=== PATIENT | male | born 1970 | race Caucasian/White ===

== ENCOUNTER → 2017-01-15 | Day surgery (SDC) | payer BC, OTHER ==
[~2017-01-15] VITALS: Ht 167.6 cm; Wt 102.1 kg
[~2017-01-15] MED LIST: AMLO5TAB2 PO; ATOR40TA PO; CEPH500T PO; D5W/0.2% SODIUM CHLORIDE 250 ML IV SCH; DOXY100C PO; LIDOCAINE 2% W/EPIN INJ 20ML **PRES FREE As Ordered ONE; LIDOCAINE 2% W/EPIN INJ 20ML **PRES FREE XX ONE; LIDOCAINE 4% INJ 5 ML AMP As Ordered ONE; LIDOCAINE 4% INJ 5 ML AMP OU ONE; LISI10TA4 PO; MAXITROL OPHTH OINT 3.5 GM As Ordered ONE; MAXITROL OPHTH OINT 3.5 GM OS ONE; MIDAZOLAM INJ 2 MG/2 ML VIAL (J2250) As Ordered ONE; NYST10PW TOP; PERCOCET PO; POVIDONE-IODINE 5% OPHTH PREP SOL 30ML As Ordered ONE; TETRACAINE 0.5% OPHTH SOLN 4ML As Ordered ONE; fentaNYL 100 MCG/2 ML INJECTION (J3010) As Ordered ONE
[2017-01-15 16:45] VITALS: BP 162/88
--- NOTE | 2017-01-16 12:19 | RO ---
DATE OF PROCEDURE: 01/15/2017 PREPROCEDURE DIAGNOSIS: Conjunctival tumor lateral conjunctiva left eye. 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 PROCEDURE: Excisional biopsy of the tumor of the conjunctiva and orbit. SURGEON: Liang Oconnor Jr., DO FACS IRRIGATION EQUIPMENT INSTALLER: ANESTHESIA: Local 2% lidocaine with epinephrine and monitoring and sedation by anesthesia. ESTIMATED BLOOD LOSS: Minimal. COMPLICATIONS: None. INDICATION: Patient discomfort and appearance was unsatisfactory. PROCEDURE IN DETAIL: This gentleman presented to the office complaining of a growth in his left conjunctiva. He was presented to and was re-examined in the preoperative area, however, the consent that he signed was for a lid lesion. He was taken to the operating room and prepped and draped, but during the time out, it was found that the tumor was in the conjunctiva, so the drapes were removed, the lid speculum was removed and the patient was assessed and to be competent to sign a new consent. So informed consent was obtained for conjunctival lesion, tumor and this was signed by the surgeon and the patient and witnessed by the nursing staff. Patient was reprepped and draped and a lid speculum was introduced into the left eye. The conjunctiva was infused with 2% lidocaine and epinephrine, about 0.5 mL and conjunctiva peritomy was performed several clock hours from about the 2 to 5 o'clock and exploration began. There was a cyst prolapsed over the fat which extended into the orbit. The orbital fat was excised with a cutting Bovie cautery and the conjunctiva was closed and well approximated with interrupted #6-0 plain sutures, then was administered Maxitrol ointment. Lid speculum removed. Patient returned to recovery area in excellent position. Postoperative instructions will be Maxitrol ointment four times a day and he will followup in the office.
== END | disposition home or self-care (01) ==
LOC: M SDC 12:22
PROVIDERS: ATTEND Ophthalmology
DX: H11.442 Conjunctival cysts, left eye (principal); I10 Essential (primary) hypertension; E78.5 Hyperlipidemia, unspecified; M10.9 Gout, unspecified; L40.8 Other psoriasis; Z79.899 Other long term (current) drug therapy
CPT/HCPCS: 68100; 88305; J2250; J3010

== ENCOUNTER → 2017-05-15 | Outpatient (REF) | payer OTHER ==
[~2017-05-15] MED LIST changes: -D5W/0.2% SODIUM CHLORIDE 250 ML IV SCH; -LIDOCAINE 2% W/EPIN INJ 20ML **PRES FREE As Ordered ONE; -LIDOCAINE 2% W/EPIN INJ 20ML **PRES FREE XX ONE; -LIDOCAINE 4% INJ 5 ML AMP As Ordered ONE; -LIDOCAINE 4% INJ 5 ML AMP OU ONE; -MAXITROL OPHTH OINT 3.5 GM As Ordered ONE; -MAXITROL OPHTH OINT 3.5 GM OS ONE; -MIDAZOLAM INJ 2 MG/2 ML VIAL (J2250) As Ordered ONE; -POVIDONE-IODINE 5% OPHTH PREP SOL 30ML As Ordered ONE; -TETRACAINE 0.5% OPHTH SOLN 4ML As Ordered ONE; -fentaNYL 100 MCG/2 ML INJECTION (J3010) As Ordered ONE
[2017-05-15 15:12] LABS: ALBUMIN 2.9 GM/DL (3.2-5.2); ALKALINE PHOSPHATASE 306 U/L (45-117); ALT/SGPT 91 U/L (12-78); ANION GAP 10 MEQ/L (8-16); BILIRUBIN,TOTAL 1.5 MG/DL (0.2-1.0); CALCIUM LEVEL 7.6 MG/DL (8.5-10.1); CARBON DIOXIDE LEVEL 28 MEQ/L (21-32); CHLORIDE LEVEL 93 MEQ/L (98-107); CREATININE FOR GFR 0.83 MG/DL (0.70-1.30); GLOMERULAR FILTRATION RATE > 60.0 (>60); GLUCOSE, FASTING 184 MG/DL (70-105); POTASSIUM SERUM 3.9 MEQ/L (3.5-5.1); SODIUM LEVEL 131 MEQ/L (136-145)
[2017-05-15 16:12] LABS: AST/SGOT 170 U/L (15-37); BLOOD UREA NITROGEN 6 MG/DL (7-18); TRIGLYCERIDES LEVEL 2742 MG/DL (<150)
[2017-05-15 16:13] LABS: ALBUMIN/GLOBULIN RATIO 0.74 (1.00-1.93); CHOLESTEROL LEVEL 468 MG/DL (<200); TOTAL PROTEIN 6.8 GM/DL (6.4-8.2)
[2017-05-15 16:36] LABS: MEAN CORPUSCULAR HGB CONC 32.3 g/dl (32.0-36.5); PLATELET COUNT, AUTOMATED 145 k/mm3 (150-450); RED CELL DISTRIBUTION WIDTH 13.9 % (11.5-14.5); WHITE BLOOD COUNT 5.9 K/mm3 (4.0-10.0)
[2017-05-15 16:39] LABS: BASO % 0.6 % (0.0-1.0); EOS # 0.1 K/mm3 (0.0-0.50); EOS % 1.4 % (0.0-3.0); LARGE UNSTAINED CELL # 0.1 K/mm3 (0.0-0.4); LARGE UNSTAINED CELL % 1.8 % (0.0-4.0); LYMPH # 1.3 K/mm3 (1.5-4.5); LYMPH % 21.5 % (24.0-44.0); MONO # 0.4 K/mm3 (0.0-0.8); NEUTROPHILS # 4.1 K/mm3 (1.8-7.7); NEUTROPHILS % 68.7 % (36.0-66.0)
[2017-05-15 16:40] LABS: ADD MORPHOLOGY? NO; DIFF SLIDE NUMBER 250
== END ==
LOC: M LAB REF 12:43
PROVIDERS: ATTEND Nurse Practitioner Adult Health
DX: E78.2 Mixed hyperlipidemia (principal); R73.09 Other abnormal glucose; I10 Essential (primary) hypertension

== ENCOUNTER → 2018-04-24 | Outpatient (REF) | payer OTHER ==
[2018-04-26 08:06] LABS: LDL DIRECT 35 mg/dL (0-99)
== END ==
LOC: M LAB REF 08:00
DX: I10 Essential (primary) hypertension (principal)

== ENCOUNTER → 2018-09-04 | Outpatient (REF) | payer OTHER ==
[2018-09-06 09:44] LABS: LDL DIRECT 193 mg/dL (0-99)
== END ==
LOC: M LAB REF 17:18
DX: E78.2 Mixed hyperlipidemia (principal)
CPT/HCPCS: 83721

== ENCOUNTER → 2018-09-27 | Outpatient (CLI) | payer BC, OTHER | LOC: M RAD 13:38 | DX: J98.6 Disorders of diaphragm (principal) | CPT/HCPCS: 76000 ==

== ENCOUNTER 2018-11-11 10:49 | Emergency (ER) | payer OTHER, BC | END 2018-11-11 12:31 | disposition home or self-care (01) | LOC: M ED 10:49 | DX: S80.01XA Contusion of right knee, initial encounter (principal); W22.8XXA Striking against or struck by other objects, initial encounter; Y92.89 Other specified places as the place of occurrence of the external cause; Y99.0 Civilian activity done for income or pay; I10 Essential (primary) hypertension; Z79.899 Other long term (current) drug therapy | CPT/HCPCS: 73564 ==

== ENCOUNTER → 2018-12-19 | Outpatient (CLI) | payer BC, OTHER ==
[~2018-12-19] MED LIST changes: -AMLO5TAB2 PO; +AMLO5TAB6 PO; -ATOR40TA PO; +ATOR40TA75 PO
--- NOTE | 2018-12-24 13:06 | SLEEPCENT ---
DATE OF STUDY: 12/19/2018 ORDERING PROVIDER: Leighton Arnett DO Nocturnal polysomnography was performed for re-titration of pressure therapy in this patient with obstructive sleep apnea syndrome. Apnea-hypopnea index 23.7. For testing, the patient was fit with a ResMed Quattro full face mask of medium size. 5 cm of water pressure was initially applied to the circuit, and the lights were extinguished. 6 hours and 28 minutes of data were reviewed. There were 321 minutes of sleep identified. Sleep latency was short at 5 minutes. Rapid eye movement (REM) latency was short at 14 minutes. Sleep architecture improved late in the study on optimal pressure therapy. Overall sleep efficiency was 83.6%. The patient's electrocardiogram showed a sinus rhythm with an average heart rate of 68 beats per minute. Electroencephalogram (EEG) showed normal waveforms for awake and sleep stages. Respiratory events were best palliated with continuous positive airway pressure (CPAP) at a pressure of +13. Limb activity was sporadic. There was one train of 30 events, and limb movement arousal index was 9.3. IMPRESSION: Obstructive sleep apnea syndrome (G47.33). RECOMMENDATION: Nightly use of pressure therapy at 13 cm of water.
== END ==
LOC: M SLEEP 20:47
PROVIDERS: ATTEND Internal Medicine Pulmonary Disease
DX: G47.33 Obstructive sleep apnea (adult) (pediatric) (principal)

== ENCOUNTER → 2020-05-27 | Outpatient (REF) | payer OTHER ==
[~2020-05-27] MED LIST changes: +AMLO1TAB24 PO; -AMLO5TAB6 PO; +ATOR1TAB21 PO; +B-10TAB2 PO; +IBUP200T45 PO; +INDA125TA PO; +LISI-542 PO; +MULTCAP PO; +NYST-15 TOP; -NYST10PW TOP; +PANT40TA29 PO; +SUCR1ORA PO; +THIA100T7 PO; +VASC1CAP2 PO
[2020-05-29 07:07] LABS: LDL DIRECT 27 mg/dL (0-99)
== END ==
LOC: M LAB REF 16:50
PROVIDERS: ATTEND Nurse Practitioner Adult Health
DX: E78.2 Mixed hyperlipidemia (principal)

== ENCOUNTER 2020-08-27 12:17 | Inpatient (IN) | payer BC, OTHER ==
[2020-08-27] VITALS (7 sets, daily range): BP systolic 100–164; BP diastolic 44–75
[~2020-08-27] VITALS: Ht 167.6 cm; Wt 105.0 kg
[~2020-08-27 12:17] MED LIST changes: -ATOR1TAB21 PO; -B-10TAB2 PO; -IBUP200T45 PO; -INDA125TA PO; -LISI-542 PO; -MULTCAP PO; -PANT40TA29 PO; -SUCR1ORA PO; -THIA100T7 PO; -VASC1CAP2 PO
[2020-08-27] MEDS ORDERED: VASC1CAP2 PO (12:39)
[2020-08-27] MEDS ORDERED: B-10TAB2 PO (12:39)
[2020-08-27] MEDS ORDERED: MULTCAP PO (12:39)
[2020-08-27] MEDS ORDERED: INDA125TA PO (12:39)
[2020-08-27] MEDS ORDERED: ONDANSETRON 4MG/2ML VIAL IV ONE ×2 (12:45→17:00)
[2020-08-27] MEDS ORDERED: PANTOPRAZOLE 40MG VIAL (C9113 PER 1) IV ONE (12:45)
[2020-08-27] MEDS ORDERED: NS 1,000 ML IV ONE (12:45)
[2020-08-27] MEDS: PANTOPRAZOLE SODIUM 40 MG in D5W 50 ML IV SCH ×3 (12:48→22:07)
[2020-08-27 12:52] LABS: BASO % 0.2 % (0.0-1.0); EOS % 0.1 % (0.0-3.0); HEMATOCRIT 25.9 % (42.0-52.0); HEMOGLOBIN 8.9 g/dl (13.5-17.5); LYMPH # 2.7 10^3/uL (1.5-5.0); LYMPH % 22.4 % (24.0-44.0); MEAN CORPUSCULAR HEMOGLOBIN 32.4 pg (27.0-33.0); MEAN CORPUSCULAR HGB CONC 34.4 g/dl (32.0-36.5); MEAN CORPUSCULAR VOLUME 94.2 fl (80.0-96.0); MONO # 0.6 10^3/uL (0.0-0.8); MONO % 4.8 % (0.0-5.0); NEUTROPHILS # 8.5 10^3/uL (1.5-8.5); NEUTROPHILS % 71.9 % (36.0-66.0); PLATELET COUNT, AUTOMATED 183 10^3/uL (150-450); RED BLOOD COUNT 2.75 10^6/uL (4.30-6.10); WHITE BLOOD COUNT 11.9 10^3/uL (4.0-10.0)
[2020-08-27] MEDS ORDERED: OCTREOTIDE ACETATE 100MCG/ML VIAL (J2354 PER 25MCG) IV STA (12:52)
--- NOTE | 2020-08-27 12:59 | REPVR ---
PROCEDURE INFORMATION: Exam: XR Chest, 1 View Exam date and time: 08/27/2020 12:53 PM Age: 50 years old Clinical indication: Shortness of breath; Additional info: SOB TECHNIQUE: Imaging protocol: XR of the chest Views: 1 view. COMPARISON: XA Chest Fluoro Sniff Test 09/27/2018 1:54 PM FINDINGS: Lungs: Unremarkable. No consolidation. Pleural space: Unremarkable. No pleural effusion. No pneumothorax. Heart/Mediastinum: Unremarkable. No cardiomegaly. Diaphragm: The right hemidiaphragm is again elevated. Bones/joints: Degenerative changes again involve the spine. IMPRESSION: Right hemidiaphragm elevated, as on 09/27/18. Electronically signed by: Blair Guido On 08/27/2020 12:59:27 PM
[2020-08-27 13:11] LABS: ALBUMIN 2.6 GM/DL (3.2-5.2); BILIRUBIN,DIRECT 1.9 MG/DL (0.0-0.2); BILIRUBIN,TOTAL 3.3 MG/DL (0.2-1.0); CK-MB VALUE MASS 2.8 NG/ML (<3.6); MB/CK RELATIVE INDEX 0.87 (< OR =4); TOTAL PROTEIN 6.3 GM/DL (6.4-8.2); TROPONIN I 0.03 NG/ML (< 0.10)
[2020-08-27] MEDS: OCTREOTIDE ACETATE 1,200 MCG in NS 238.8 ML IV SCH (13:20)
[2020-08-27] MEDS ORDERED: IBUP200T45 PO (13:31)
[2020-08-27] MEDS ORDERED: THIA100T7 PO (13:31)
[2020-08-27] MEDS ORDERED: ATOR1TAB21 PO (13:31)
[2020-08-27] MEDS ORDERED: LISI-542 PO (13:31)
[2020-08-27] MEDS ORDERED: ROCURONIUM BROMIDE 50 MG/5 ML VIAL As Ordered ONE (13:32)
[2020-08-27] MEDS ORDERED: SUCCINYLCHOLINE 100 MG/5 ML SYRINGE (J0330) As Ordered ONE (13:32)
[2020-08-27] MEDS ORDERED: EPINEPHrine 1MG/10ML SYRINGE 1.5IN As Ordered ONE (13:39)
[2020-08-27 13:43] LABS: INR 1.45; PARTIAL THROMBOPLASTIN TIME 30.4 SECONDS (24.2-38.5); PROTHROMBIN TIME 17.9 SECONDS (12.5-14.3)
[2020-08-27] MEDS ORDERED: VASOPRESSIN INJ 20 UNITS/ML VIAL As Ordered ONE (14:34)
[2020-08-27] MEDS ORDERED: PHENYLephrine HCL 500 MCG/5 ML (100MCG/ML) SYRINGE (J2370) As Ordered ONE (14:34)
--- NOTE | 2020-08-27 14:41 | ROOR ---
Patient Name: Man Dominguez Procedure Date: 08/27/2020 1:39 PM Date of : 1970 Age: 50 Gender: Male Note Status: Finalized Procedure: Upper GI endoscopy Indications: Hematemesis, Active gastrointestinal bleeding Providers: Saud KUMAR MD Referring MD: 2. Inpatient 2. Inpatient, Shelby Gibbs DO Requesting Provider: Medicines: Monitored Anesthesia Care Complications: No immediate complications. Procedure: Pre-Anesthesia Assessment: - The heart rate, respiratory rate, oxygen saturations, blood pressure, adequacy of pulmonary ventilation, and response to care were monitored throughout the procedure. The Endoscope was introduced through the mouth, and advanced to the second part of duodenum. The upper GI endoscopy was accomplished without difficulty. The patient tolerated the procedure well. Findings: Two cratered esophageal ulcers with spurting blood and stigmata of recent bleeding were found in the lower third of the esophagus. The largest lesion was 10 mm in largest dimension. To stop active bleeding, five hemostatic clips were successfully placed. There was no bleeding at the end of the procedure. Small (< 5 mm) varices were found in the distal esophagus. Red blood was found in the entire esophagus. Red blood was found in the entire examined stomach. The examined duodenum was normal. Impression: - Large/deep actively bleeding esophageal ulcers. Clips were placed. Good hemostasis. - Small (< 5 mm) esophageal varices. (suspect ulceration into a small esophageal varix) - Red blood in the esophagus. -poor vis, but grossly normal. - Red blood in the entire stomach. -poor vis, but grossly normal - Normal examined duodenum. - No specimens collected. Recommendation: - Repeat upper endoscopy in 2-4 weeks because the preparation was poor. Needs reviz. I cannot entirely r/o a small ulcerated mass. - Would continue Octreotide GTT for 3 days. - Continue IV PPI, transfuse PRN. Monitor for rebleeding Saud Kumar MD Saud KUMAR MD 08/27/2020 2:40:53 PM Electronically signed by Saud KUMAR MD Number of Addenda: 0 Note Initiated On: 08/27/2020 1:39 PM Estimated Blood Loss: Estimated blood loss: none.
[2020-08-27] MEDS ORDERED: ONDANSETRON 4MG/2ML VIAL IV PRN (15:00)
[2020-08-27] MEDS ORDERED: LR 1,000 ML IV SCH (15:00)
[2020-08-27] MEDS ORDERED: oxyCODONE 5MG TAB PO PRN (15:00)
--- NOTE | 2020-08-27 15:19 | HPEPDOC ---
[facility] Medical History & Physical Date of Admission Aug 27, 2020 Date of Service: Aug 27, 2020 Primary Care Physician: Shari Mitchell Other Provider Dr. Saud Sheppard M.D., Gastroenterology Attending Physician: TIM BEARD MD History and Physical CHIEF COMPLAINT: Hematemesis HISTORY OF PRESENT ILLNESS: Man is 50yo male with PMH of liver cirrhosis/steatohepatitis 2/2 alcohol abuse (reported 6-10 beers/day or 5 tall-boys/day), htn, hld, psoriasis, and amy (non- compliant on home cpap) who presented to the ED after three reported episodes of jesus red hematemesis at home over the past 24 hours with melena. He states he's had hematemesis episodes in the past, but never to this volume and or jesus red color. Other than some crackers, he has had nothing to eat or drink since the initial episode of hematemesis. He reports his last drink of alcohol was 6 days ago (Sunday, 08/21). He endorses an accompanying significant headache. He has no history of any prior egd studies since, per the ed, he only ever reported social alcohol use and never presented for the previous hematemesis episodes. Per records, he's had three previous colonoscopies due to crc in a first degree relative, with the last in Oct 2016 (internal hemorrhoids, diverticulosis, and o ne small polyp that was removed). In the ED, he had a witnessed episode of hematemesis in which 200cc were expelled with multiple clots. He was subsequently given a 50 mcg push of octreotide, 80 mg iv protonix, and 4 mg iv zofran. His initial H&H was 8.9/29.9 (for reference, [facility] shows on 05/27/2020 an h&h of 13.9/39.8). A type and screen was performed and consent for blood products was obtained. Two units of prbc were ordered but had yet to be transfused. Dr. Sheppard of gastroenterology was contacted and the patient was prepped for an emergent egd. At the time of the hospitalist history and physical exam, he was receiving a 1L fluid bolus, and infusions of both octreotide and pantoprozole. He did verbally confirm that his code status was full code. His pcp is Shari Mitchell. He denied an known drug allergies. 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 He is and has at least 2 children. He has the aforementioned alcohol history. He denies any history of smoking. FAMILY HISTORY: FatherMI 30 years ago and is status post multiple catheterizations; colon cancer 20 years ago. ALLERGIES: Please see below. REVIEW OF SYSTEMS: A full complete and thorough review of systems was somewhat limited due to the patient's anxiety discomfort and overall medical state, as well as the time urgency of the visit prior to the emergent EGD. CONSTITUTIONAL: Endorses diaphoresis HEENT: Denies vision or hearing deficits or recent changes CARDIOVASCULAR: Denies chest pain, palpitations, or chest pressure RESPIRATORY: Denies shortness of breath or cough GASTROINTESTINAL: Endorses hematemesis and melena as detailed above in HPI; endorses nausea; endorses abdominal pain secondary to force of retching GENITOURINARY: Eyes dysuria or hematuria MUSCULOSKELETAL: Denies significant myalgias or arthralgias NEUROLOGICAL: Endorses significant headache ENDOCRINE: Endorses some mild to moderate heat intolerance HOME MEDICATIONS: Please see below. PHYSICAL EXAMINATION: VITAL SIGNS: Please see below GENERAL APPEARANCE: Obese male lying in bed. Appears to be in signi ficant discomfort and moderate distress. Diaphoretic and quite anxious. Alert and oriented 3. HEENT: Normocephalic, atraumatic. Diaphoretic. Noninjected, anicteric sclera. No significant conjunctival pallor. Poor dentition. NECK: Wide short neck which made appreciation of JVD somewhat difficult. No lymphadenopathy appreciated CARDIOVASCULAR: Tachycardic rate with regular rhythm. Hotel to monitors which showed sinus tachycardia. Normal S1, S2 with no significant murmurs, rubs or gallops appreciated, although heart sounds are somewhat distant, likely secondary to habitus LUNGS: Due to patient's discomfort and anxious state, auscultation and occurred only anteriorly and laterally. Decreased tidal volume with no significant adventitious breath sounds appreciated. Symmetric chest expansion. Breathing room air. ABDOMEN: Soft, obese and nontender with normoactive bowel sounds throughout. No guarding, rigidity appreciated. Due to habitus, difficult to appreciate for pedal splenomegaly. Musculoskeletal: 5 out of 5 muscle strength bilateral lower extremities. EXTREMITIES: 1+ pitting edema of the right lower extremity with anterior ward ecchymosis. No significant pitting edema of the left lower extremity. NEUROLOGICAL: Alert and oriented 3 but insignificant discomfort and very anxious. Respond appropriately to questions and commands. Non-dysarthric speech. PSYCHIATRIC: Anxious mood and distracted at times secondary to his discomfort LABORATORY DATA: Please see below. IMAGING: Chest x-ray, 08/27/20 Right hemidiaphragm elevated, as on 09/27/18. Right upper quadrant/liver ultrasound, 08/27/20 Hepatic steatosis/cirrhosis. Negative gallbladder. PROCEDURE: Emergent esophagogastroduodenoscopy (egd), 08/27/20 Findings: Two cratered esophageal ulcers with spurting blood and stigmata of recent bleeding were found in the lower third of the esophagus. The largest lesion was 10 mm in largest dimension. To stop active bleeding, five hemostatic clips were successfully placed. There was no bleeding at the end of the procedure. Small (< 5 mm) varices were found in the distal esophagus. Red blood was found in the entire esophagus. Red blood was found in the entire examined stomach. The examined duodenum was normal. Impression: - Large/deep actively bleeding esophageal ulcers. Clips were placed. Good hemostasis. - Small (< 5 mm) esophageal varices. (suspect ulceration into a small esophageal varix) - Red blood in the esophagus. -poor vis, but grossly normal. - Red blood in the entire stomach. -poor vis, but grossly normal - Normal examined duodenum. - No specimens collected. MICROBIOLOGY: Please see below. ASSESSMENT & PLAN: This is a 50-year-old male with h/o liver cirrhosis and with alcohol abuse, hypertension, hyperlipidemia, AMY, noncompliant with home CPAP who presented on 08/27 with multiple episodes of jesus red, matted emesis over the past 24 hours and was given octreotide, bolus IV fluid, Zofran 8, and pantoprazole and was brought for emergent EGD which found two bleeding ulcers in the lower third of the esophagus that required 5 clips to stop the bleeding as well as small varices in the distal esophagus. He was admitted under the care of the ospitalist service to the intensive care unit for continued monitoring post-EGD in the setting of PUD and esophageal varices secondary to alcohol abuse and liver cirrhosis. #Upper gastrointestinal bleed secondary to peptic ulcer disease and esophageal varices. Patient underwent emergent EGD with Dr. Sheppard of gastroenterology that showed 2 bleeding ulcers lower third of the esophagitis that required 5 clips, along with small varices in the distal esophagus with blood in the entire examined eso phagus and stomach -Status post octreotide, push, pantoprazole bolus, and Zofran initially in the ED with continued pantoprazole and octreotide infusions afterwards, along with 1 L fluid bolus -Type and screen performed along with consent for blood products and 2 units of packed red blood cells were ordered but not given in the ED prior to the EGD. Right around the time of the EGD, patient received transfusion of the 2 units PRBCs with subsequently 2 more units ordered. -Upon presentation the ICU after the EGD, patient was placed on pantoprazole 40 mg IV twice a day, somatostatin drip. To continue for at least 48 hours, normal saline 70 mL per hour -Npo ordered with H&H every 8 hours. Order made for providers to be contacted for likely transfusion should hemoglobin drop below 7 -Afternoon one-time dose of Zofran was ordered. EKG earlier in admission showed QTC of 378. Should patient continue to have nausea, providers will be contacted in Will assess if further anti-emetic warranted -Avoid NSAIDs, aspirin, or heparin -On telemetry #Liver cirrhosis and steatohepatits -Reported history of liver cirrhosis that was initially thought to be secondary to nonalcoholic steatohepatitis. No documented previous right upper quadrant ultrasound in [facility] history, review -Right upper quadrant ultrasound ordered for this afternoon -Hepatitis panel ordered #Possible EtOH withdrawal -Patient claims his last drink of alcohol was 6 days ago on 08/21, but due to extensive alcohol abuse history. Detailed above, IV thiamine and folic acid ordered -[facility] nursing protocol ordered #Hypertension -Patient is npo, therefore all home oral medications are being held -IV hydralazine 10 mg every 6 hours prn ordered should systolic blood pressure be greater than 160 #Hyperlipidemia -Home oral atorvastatin held in the setting of current npo orders #History of AMY, non-compliant on home cpap -per record review, November 2018 polysomnography study, patient qualified for home CPAP but is noncompliant -Oxygen titration orders greater than 94% -continuous pulse ox #DVT prophylaxis: TEDs and SCDs #Disposition: Pending stability of upper GI bleed from ulcers and varices status post emergent EGD and continued documented hemodynamic stability with ICU monitoring Vital Signs Vital Signs Date Time Temp Pulse Resp B/P (MAP) Pulse Ox O2 Delivery O2 Flow Rate FiO2 08/27/20 13:30 131 22 124/79 (94) 100 Room Air 08/27/20 12:38 98.1 Laboratory Data Labs 24H Laboratory Tests 2 08/27/20 12:35: Total Bilirubin 3.3H, Direct Bilirubin 1.9H, Aspartate Amino Transf (AST/SGOT) 195H, Alanine Aminotransferase (ALT/SGPT) 130H, Alkaline Phosphatase 167H, Total Creatine Kinase 322H, Creatine Kinase MB 2.8, Creatine Kinase MB Relative Index 0.87, Troponin I 0.03, Total Protein 6.3L, Albumin 2.6L, Albumin/Globulin Ratio 0.7, Lipase 70L 08/27/20 12:55: Immature Granulocyte % (Auto) 0.6, Neutrophils (%) (Auto) 71.9H, Lymphocytes (%) (Auto) 22.4L, Monocytes (%) (Auto) 4.8, Eosinophils (%) (Auto) 0.1, Basophils (%) (Auto) 0.2, Neutrophils # (Auto) 8.5, Lymphocytes # (Auto) 2.7, Monocytes # (Auto) 0.6, Eosinophils # (Auto) 0.0, Basophils # (Auto) 0.0, Nucleated Red Blood Cells % (auto) 0.0 08/27/20 13:00: POC Glucose (Misc Panel) 259H, POC Sodium (Misc Panel) 131L, POC Potassium (Misc Panel) 3.2L, POC Chloride (Misc Panel) 87L, POC Total CO2 (Misc Panel) 25.0, POC Blood Urea Nitrogen (Misc Panel 40H, POC Ionized Calcium (Misc Panel) 4.3L, POC Creatinine (Misc Panel) 1.0, POC Hematocrit (Misc Panel) 30.0L 08/27/20 13:16: Prothrombin Time 17.9H, Prothromb Time International Ratio 1.45, Activated Partial Thromboplast Time 30.4 08/27/20 13:19: CBC/BMP Laboratory Tests 08/27/20 12:55 Home Medications Scheduled Amlodipine Besylate (Amlodipine Besylate) 5 Mg Tab, 5 MG PO DAILY Atorvastatin Calcium (Atorvastatin Calcium) 20 Mg Tablet, 20 MG PO DAILY Icosapent Ethyl (Vascepa) 1 Gm Capsule, 1 GM PO BIDWM Indapamide (Indapamide) 1.25 Mg Tablet, 1.25 MG PO DAILY Lisinopril (Lisinopril) 5 Mg Tablet, 5 MG PO DAILY Multivitamin (Multivitamins) 1 Each Capsule, 1 CAP PO DAILY Thiamine HCl (Thiamine HCl) 100 Mg Tablet, 100 MG PO DAILY Scheduled PRN Ibuprofen (Ibu-200) 200 Mg Tablet, 200 MG PO Q6H PRN for PAIN Allergies Coded Allergies: No Known Allergies (Verified , 01/15/17) A-FIB/CHADSVASC A-FIB History Current/History of A-Fib/PAF?: No Current PO Anticoag Therapy: DIANE Hus D.O. Aug 27, 2020 15:19
[2020-08-27] MEDS ORDERED: fentaNYL 100 MCG/2 ML INJECTION (J3010) As Ordered ONE (15:24)
[2020-08-27] MEDS: fentaNYL 100 MCG/2 ML INJECTION (J3010) IV PRN ×2 (15:26→15:31)
[2020-08-27] MEDS: hydrALAZINE 20MG/ML 1ML VIAL (J0360 PER 20MG) IV SCH ×2 (16:00→22:00)
[2020-08-27] MEDS: NS 1,000 ML IV SCH (16:34)
[2020-08-27 16:39] LABS: HEMATOCRIT 29.4 % (42.0-52.0); HEMOGLOBIN 10.2 g/dl (13.5-17.5)
--- NOTE | 2020-08-27 17:29 | REPVR ---
PROCEDURE INFORMATION: Exam: US Abdomen, Limited; Right Upper Quadrant Exam date and time: 08/27/2020 5:14 PM Age: 50 years old Clinical indication: Condition or disease; Liver condition; Cirrhosis; Additional info: H/o of cirrhosis in setting of acute ugib TECHNIQUE: Imaging protocol: US abdomen. Real time ultrasound with image documentation. Limited exam focused on the right upper quadrant. COMPARISON: No relevant prior studies available. FINDINGS: Liver: The liver is diffusely echogenic relative to the right kidney, findings consistent with steatosis. Findings also consistent with cirrhotic morphology. Gallbladder: Normal. No gallstones. There is no gallbladder wall thickening. Common bile duct: The common bile duct measures 7.4 mm. No mass or choledocholithiasis. Pancreas: Visualized pancreas is unremarkable. Right kidney: Right kidney measures 14.3 x 7 x 7.1 cm. IMPRESSION: 1. Hepatic steatosis/cirrhosis. 2. Negative gallbladder. Electronically signed by: Maverick Cristobal On 08/27/2020 17:28:53 PM
[2020-08-27] MEDS ORDERED: LORazepam 2 MG TAB PO PRN (20:15)
--- NOTE | 2020-08-27 20:38 | ECGEPIP ---
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
[2020-08-27] MEDS ORDERED: LORazepam 2 MG/ML VIAL As Ordered ONE (20:59)
[2020-08-27] MEDS ORDERED: LORazepam 2 MG/ML VIAL IV PRN (21:00)
[2020-08-28] VITALS (16 sets, daily range): BP systolic 96–124; BP diastolic 45–67
[2020-08-28 00:08] LABS: HEMATOCRIT 25.9 % (42.0-52.0); HEMOGLOBIN 9.2 g/dl (13.5-17.5)
[2020-08-28] MEDS: PANTOPRAZOLE SODIUM 40 MG in D5W 50 ML IV SCH ×5 (03:15→23:41)
[2020-08-28] MEDS: hydrALAZINE 20MG/ML 1ML VIAL (J0360 PER 20MG) IV SCH ×4 (03:16→21:28)
[2020-08-28] MEDS: NS 1,000 ML IV SCH (05:50)
--- NOTE | 2020-08-28 07:37 | IPNPDOC ---
Date Seen The patient was seen on 08/28/20. Progress Note SUBJECTIVE: patient seen and examined at bedside. S/p emergent EGD for acute UGIB. Patient is presently on PPI ggt, octreotide ggt. BP borderline low but stable. Denies acute events overnight. . He denies abdominal pain, chest pain, shortness of breath, nausea, vomiting, diarrhea. States feels a little bit weak when standing. Attempted to walk to bathroom with assist. Elected to go to commode. Dark stool noted. No jesus blood. OBJECTIVE VITAL SIGNS: please see below General: NAD, comfortable HEENT: PERRLA, EOMI, sclerae clear Neck: supple, normal ROM, no JVD Respiratory: lungs CTAB, no wheeze, no rales, no crackles CVS: RRR, normal S1, S2, no murmurs Abdo: soft, no masses, no hepatosplenomegaly, BS+, no rebound tenderness Extremities: no edema, pulses 2+ MSK: no joint deformities, normal ROM Neuro: no focal neuro deficits, moving all 4 extremities, CN2-12 intact. Strength 5/5 in all 4 extremities. No nystagmus. Psych: calm, cooperative, AAO x 3 LABORATORY DATA, IMAGING STUDIES, MICROBIOLOGY: Please see below. DVT prophylaxis ordered?: SCDs, TEDs, avoiding chemoprophylaxis in setting of acute blood loss anemia ASSESSMENT AND PLAN: 50 yo M with a hx of liver cirrhosis, steatohepatitis, alcohol use disorder, HTN, HLD, AMY (noncompliant with CPAP), presented to ED with gross hematemesis. Taken to OR for emergent EGD by Dr. Sheppard. Two cratered esophageal ulcers in lower 1/3 of esophagus found (largest 10 mm in diameter). Hemostasis achieved with clips. Numerous small varices in distal esophagus. Patient was transfered to ICU for higher level care in setting of acute blood anemia from PUD and esophageal varies 2/2 chronic etoh abuse and liver cirrhosis. Continued PPI ggt, Octreotide ggt, serial H/H. Patient stable at present. PROBLEMS: #Acute blood loss anemia: jesus hematemesis. s/p 2 units pRBC (Hg 8.9 -> 10.2). 2/2 bleeding esophageal ulcers, esophageal varices. Transfuse for Hgb < 7. This morning Hgb 7.7, symptomatic. Transfuse 1 unit pRBC (total 3 PRBC). H/H q8h. #Upper GI bleed: s/p EGD. 2 lower 1/3 esophageal ulcers. Small distal esophageal varices. Protonix ggt. Octreotide ggt. CLD per Dr. Sheppard. Sucralfate suspension. Repeat EGD 2-[address] Sheppard. Cannot exclude ulcerated mass. #Cirrhosis/Steatohepatitis: INR 1.45. Viral hepatitis panel negative. US liver steatohepatosis. Outpatient follow with PCP/GI for fibroscan. Alcohol cessat ion/rehab. #Transaminitis: 2/2 alcoholic liver cirhosis and steatohepatitis. #ETOH withdrawal: reports last drink 08/21. ETOH use disorder. CIWA. Ativan 2 mg q4h IV prn. IV thiamine. Folate. # HTN: BP low end. Home antihypertensives held. Hydralazine IV for SBP > 180. #HLD: lipitor home. Hold PO meds. #AMY: patient non compliant with home CPAP. Sleep study in 11/2018. DVT ppx: TEDs, SCDs. Avoid chemoprophylaxis in setting of acute blood loss anemia. Disposition: pending stable hemostasis from bleeding peptic ulcers and varices, continued hemodynamic stability. Admission to span more than 2 midnights. VS, I&O, 24H, [facility] Vital Signs/I&O Vital Signs Date Time Temp Pulse Resp B/P (MAP) Pulse Ox O2 Delivery O2 Flow Rate FiO2 08/28/20 06:00 101 20 100/54 (69) 98 Nasal Cannula 1.0 08/28/20 04:00 98.2 08/27/20 21:00 99 I&O- Last 24 Hours up to 6 AM 08/28/20 06:00 Intake Total 2970 ml Output Total 1465 ml Balance 1505 ml Laboratory Data 24H LABS Laboratory Tests 2 08/27/20 12:35: Total Bilirubin 3.3H, Direct Bilirubin 1.9H, Aspartate Amino Transf (AST/SGOT) 195H, Alanine Aminotransferase (ALT/SGPT) 130H, Alkaline Phosphatase 167H, Total Creatine Kinase 322H, Creatine Kinase MB 2.8, Creatine Kinase MB Relative Index 0.87, Troponin I 0.03, Total Protein 6.3L, Albumin 2.6L, Albumin/Globulin Ratio 0.7, Lipase 70L 08/27/20 12:55: Immature Granulocyte % (Auto) 0.6, Neutrophils (%) (Auto) 71.9H, Lymphocytes (%) (Auto) 22.4L, Monocytes (%) (Auto) 4.8, Eosinophils (%) (Auto) 0.1, Basophils (%) (Auto) 0.2, Neutrophils # (Auto) 8.5, Lymphocytes # (Auto) 2.7, Monocytes # (Auto) 0.6, Eosinophils # (Auto) 0.0, Basophils # (Auto) 0.0, Nucleated Red Blood Cells % (auto) 0.0 08/27/20 13:00: POC Glucose (Misc Panel) 259H, POC Sodium (Misc Panel) 131L, POC Potassium (Misc Panel) 3.2L, POC Chloride (Misc Panel) 87L, POC Total CO2 (Misc Panel) 25.0, POC Blood Urea Nitrogen (Misc Panel 40H, POC Ionized Calcium (Misc Panel) 4.3L, POC Creatinine (Misc Panel) 1.0, POC Hematocrit (Misc Panel) 30.0L 08/27/20 13:16: Prothrombin Time 17.9H, Prothromb Time International Ratio 1.45, Activated Partial Thromboplast Time 30.4 08/27/20 13:19: Coronavirus (COVID-19)(PCR) NEGATIVE 08/27/20 16:26: CBC/BMP Laboratory Tests 08/27/20 12:55 08/27/20 16:26 08/27/20 23:50 YAAKOV GOOD MD Aug 28, 2020 07:37
[2020-08-28] MEDS ORDERED: DESFLURANE 240 ML INHALANT As Ordered ONE (07:56)
[2020-08-28] MEDS ORDERED: fentaNYL 100 MCG/2 ML INJECTION (J3010) As Ordered ONE (07:56)
[2020-08-28] MEDS ORDERED: LIDOCAINE 2% 100MG/5ML SDV (FOR ANES.) As Ordered ONE (07:56)
[2020-08-28] MEDS ORDERED: propofoL 200 MG/20 ML VIAL As Ordered ONE (07:56)
[2020-08-28 07:58] LABS: HEMATOCRIT 22.1 % (42.0-52.0); HEMOGLOBIN 7.7 g/dl (13.5-17.5)
[2020-08-28] MEDS: MULTIVITAMINS/MINERALS THERAP 1 TAB PO SCH (08:18)
[2020-08-28 08:38] LABS: ALBUMIN 2.2 GM/DL (3.2-5.2); ALT/SGPT 84 U/L (12-78); BILIRUBIN,TOTAL 2.3 MG/DL (0.2-1.0); BLOOD UREA NITROGEN 35 MG/DL (7-18); CARBON DIOXIDE LEVEL 34 MEQ/L (21-32); CHLORIDE LEVEL 98 MEQ/L (98-107); CREATININE FOR GFR 0.81 MG/DL (0.70-1.30); GLOMERULAR FILTRATION RATE > 60.0 (>56); GLUCOSE, FASTING 136 MG/DL (70-100); POTASSIUM SERUM 3.9 MEQ/L (3.5-5.1); SODIUM LEVEL 137 MEQ/L (136-145); TOTAL PROTEIN 5.3 GM/DL (6.4-8.2)
[2020-08-28] MEDS ORDERED: FOLIC ACID 1 MG in NS 50 ML IV SCH (09:00)
[2020-08-28] MEDS ORDERED: THIAMINE 200MG/2ML VIAL (J3411 PER 100MG) IV SCH (09:00)
[2020-08-28] MEDS: SUCRALFATE SUSP 1GM/10ML UD PO SCH ×2 (11:32→16:38)
[2020-08-28] MEDS: OCTREOTIDE ACETATE 1,200 MCG in NS 238.8 ML IV SCH (11:32)
[2020-08-28 12:52] LABS: BASO % 0.4 % (0.0-1.0); EOS # 0.1 10^3/uL (0.0-0.5); EOS % 0.5 % (0.0-3.0); HEMATOCRIT 24.1 % (42.0-52.0); HEMOGLOBIN 8.4 g/dl (13.5-17.5); LYMPH # 1.7 10^3/uL (1.5-5.0); LYMPH % 15.6 % (24.0-44.0); MEAN CORPUSCULAR HEMOGLOBIN 31.6 pg (27.0-33.0); MEAN CORPUSCULAR HGB CONC 34.9 g/dl (32.0-36.5); MEAN CORPUSCULAR VOLUME 90.6 fl (80.0-96.0); MONO # 0.5 10^3/uL (0.0-0.8); MONO % 4.6 % (0.0-5.0); NEUTROPHILS # 8.7 10^3/uL (1.5-8.5); NEUTROPHILS % 78.3 % (36.0-66.0); RED BLOOD COUNT 2.66 10^6/uL (4.30-6.10)
[2020-08-28 13:03] LABS: PLATELET COUNT, AUTOMATED 96 10^3/uL (150-450)
[2020-08-28 15:42] LABS: HEMATOCRIT 24.4 % (42.0-52.0); HEMOGLOBIN 8.5 g/dl (13.5-17.5)
[2020-08-29] VITALS (7 sets, daily range): BP systolic 107–136; BP diastolic 57–74
[2020-08-29 00:31] LABS: HEMATOCRIT 22.5 % (42.0-52.0); HEMOGLOBIN 7.9 g/dl (13.5-17.5)
[2020-08-29] MEDS: hydrALAZINE 20MG/ML 1ML VIAL (J0360 PER 20MG) IV SCH ×2 (04:00→10:00)
[2020-08-29] MEDS: PANTOPRAZOLE SODIUM 40 MG in D5W 50 ML IV SCH ×4 (04:24→19:34)
[2020-08-29 04:42] LABS: BASO # 0.1 10^3/uL (0.0-0.2); BASO % 0.8 % (0.0-1.0); EOS # 0.1 10^3/uL (0.0-0.5); EOS % 1.8 % (0.0-3.0); HEMATOCRIT 22.4 % (42.0-52.0); HEMOGLOBIN 7.6 g/dl (13.5-17.5); LYMPH % 34.2 % (24.0-44.0); MEAN CORPUSCULAR HEMOGLOBIN 31.5 pg (27.0-33.0); MEAN CORPUSCULAR HGB CONC 33.9 g/dl (32.0-36.5); MEAN CORPUSCULAR VOLUME 92.9 fl (80.0-96.0); MONO # 0.3 10^3/uL (0.0-0.8); MONO % 5.4 % (0.0-5.0); NEUTROPHILS # 3.4 10^3/uL (1.5-8.5); NEUTROPHILS % 57.5 % (36.0-66.0); RED BLOOD COUNT 2.41 10^6/uL (4.30-6.10)
[2020-08-29 05:04] LABS: ALBUMIN 2.2 GM/DL (3.2-5.2); ALT/SGPT 75 U/L (12-78); BILIRUBIN,TOTAL 2.1 MG/DL (0.2-1.0); BLOOD UREA NITROGEN 19 MG/DL (7-18); CALCIUM LEVEL 7.8 MG/DL (8.5-10.1); CARBON DIOXIDE LEVEL 33 MEQ/L (21-32); CHLORIDE LEVEL 102 MEQ/L (98-107); CREATININE FOR GFR 0.72 MG/DL (0.70-1.30); GLOMERULAR FILTRATION RATE > 60.0 (>56); GLUCOSE, FASTING 105 MG/DL (70-100); MAGNESIUM LEVEL 1.9 MG/DL (1.8-2.4); POTASSIUM SERUM 3.7 MEQ/L (3.5-5.1); SODIUM LEVEL 138 MEQ/L (136-145); TOTAL PROTEIN 5.1 GM/DL (6.4-8.2)
[2020-08-29 05:12] LABS: PLATELET COUNT, AUTOMATED 80 10^3/uL (150-450)
[2020-08-29] MEDS: MULTIVITAMINS/MINERALS THERAP 1 TAB PO SCH (08:38)
[2020-08-29] MEDS: SUCRALFATE SUSP 1GM/10ML UD PO SCH ×3 (08:38→16:58)
[2020-08-29] MEDS: ATORVASTATIN 20 MG TAB PO SCH (08:38)
--- NOTE | 2020-08-29 09:26 | IPNPDOC ---
Date Seen The patient was seen on 08/29/20. Progress Note SUBJECTIVE: patient was seen and examined at bedside. Overall doing well. Mild drop in hemoglobin overnight to 7.6, was transfused 1 unit of pRBC for a total of 4. Patient states that he has not had any additional episodes of hematemesis since his EGD. He does reports 2 BMs on 08/28/20 which were dark, which is expected given recent acute gross UGIB. Patient denies chest pain, abdominal pain, shortness of breath, n/v/d or subjective chills. OBJECTIVE PHYSICAL EXAMINATION: VITAL SIGNS: please see below General: comfortable, fatigued, no tremulousness, no outward anxiety HEENT: PERRLA, EOMI, sclerae clear Neck: supple, normal ROM, no JVD Respiratory: lungs CTAB, no wheeze, no rales, no crackles CVS: RRR, normal S1, S2, no murmurs Abdo: obese, soft, no masses, no hepatosplenomegaly, BS+, no rebound tenderness Extremities: no edema, pulses 2+, feet warm to touch, no cyanosis. MSK: no joint deformities, normal ROM Neuro: no focal neuro deficits, moving all 4 extremities, CN2-12 intact. Strength 5/5 in all 4 extremities. No nystagmus. Psych: calm, cooperative, AAO x 3 LABORATORY DATA, IMAGING STUDIES, MICROBIOLOGY: Please see below. DVT prophylaxis ordered?: SCDs, TEDs, avoiding chemoprophylaxis in setting of acute blood loss anemia ASSESSMENT AND PLAN: 50 yo M with a hx of liver cirrhosis, steatohepatitis, alcohol use disorder, HTN, HLD, AMY (noncompliant with CPAP), presented to ED with gross hematemesis. Taken to OR for emergent EGD by Dr. Sheppard. Two cratered esophageal ulcers in lower 1/3 of esophagus found (largest 10 mm in diameter). Hemostasis achieved with clips. Numerous small varices in distal esophagus. Patient was transfered to ICU for higher level care in setting of acute blood anemia from PUD and esophageal varies 2/2 chronic etoh abuse and liver cirrh osis. Continued PPI ggt, Octreotide ggt, serial H/H. Hgb remains labile, transfused to a total of 4 units of pRBC. PROBLEMS: #Acute blood loss anemia: jesus hematemesis. s/p 2 units pRBC (Hg 8.9 -> 10.2). 2/2 bleeding esophageal ulcers, esophageal varices. Transfuse for Hgb < 7. Hgb remains labile, required additional unit of pRBC overnight for a total of 4. No episodes of visible gross hematemesis/melena. Dark stools. Discussed with Dr. Beck. BUN trending down. Recommend monitoring serial HH. #Upper GI bleed: s/p EGD. 2 lower 1/3 esophageal ulcers. Small distal esophageal varices. Protonix ggt. Octreotide ggt. CLD per Dr. Sheppard. Sucralfate suspension. Repeat EGD 2-[address] Sheppard. Cannot exclude ulcerated mass. Clear liquid diet. #Cirrhosis/Steatohepatitis: INR 1.45. Viral hepatitis panel negative. US liver steatohepatosis. Outpatient follow with PCP/GI for fibroscan. Alcohol cessation/rehab. #Transaminitis: 2/2 alcoholic liver cirhosis and steatohepatitis. Stable. #ETOH withdrawal: reports last drink 08/21. ETOH use disorder. CIWA. Ativan 2 mg q4h IV prn. IV thiamine. Folate. # HTN: BP low end. Home antihypertensives continue to be held. Hydralazine IV for SBP > 180. #HLD: lipitor home. #AMY: patient non compliant with home CPAP. Sleep study in 11/2018. DVT ppx: TEDs, SCDs. Avoid chemoprophylaxis in setting of acute blood loss anemia. Disposition: pending stable hemostasis from bleeding peptic ulcers and varices, continued hemodynamic stability. Admission to span more than 2 midnights. VS, I&O, 24H, [facility] Vital Signs/I&O Vital Signs Date Time Temp Pulse Resp B/P (MAP) Pulse Ox O2 Delivery O2 Flow Rate FiO2 08/29/20 08:00 2.0 08/29/20 06:58 98.6 70 20 107/57 97 Nasal Cannula 08/29/20 06:09 I&O- Last 24 Hours up to 6 AM 08/29/20 06:00 Intake Total 3275 ml Output Total 1650 ml Balance 1625 ml Laboratory Data 24H LABS Laboratory Tests 2 08/28/20 12:35: Immature Granulocyte % (Auto) 0.6, Neutrophils (%) (Auto) 78.3H, Lymphocytes (%) (Auto) 15.6L, Monocytes (%) (Auto) 4.6, Eosinophils (%) (Auto) 0.5, Basophils (%) (Auto) 0.4, Neutrophils # (Auto) 8.7H, Lymphocytes # (Auto) 1.7, Monocytes # (Auto) 0.5, Eosinophils # (Auto) 0.1, Basophils # (Auto) 0.0, Nucleated Red Blood Cells % (auto) 0.0, Immature Platelet Fraction 2.9 08/29/20 04:17: Immature Granulocyte % (Auto) 0.3, Neutrophils (%) (Auto) 57.5, Lymphocytes (%) (Auto) 34.2, Monocytes (%) (Auto) 5.4H, Eosinophils (%) (Auto) 1.8, Basophils (%) (Auto) 0.8, Neutrophils # (Auto) 3.4, Lymphocytes # (Auto) 2.0, Monocytes # (Auto) 0.3, Eosinophils # (Auto) 0.1, Basophils # (Auto) 0.1, Nucleated Red Blood Cells % (auto) 0.0, Anion Gap 3L, Glomerular Filtration Rate > 60.0, Calcium Level 7.8L, Magnesium Level 1.9, Total Bilirubin 2.1H, Aspartate Amino Transf (AST/SGOT) 125H, Alanine Aminotransferase (ALT/SGPT) 75, Alkaline Phosphatase 90, Total Protein 5.1L, Albumin 2.2L, Albumin/Globulin Ratio 0.8 CBC/BMP Laboratory Tests 08/28/20 12:35 08/28/20 15:32 08/28/20 23:58 08/29/20 04:17 YAAKOV GOOD MD Aug 29, 2020 09:26
[2020-08-29 10:12] LABS: HEMATOCRIT 25.6 % (42.0-52.0); HEMOGLOBIN 8.7 g/dl (13.5-17.5)
[2020-08-29] MEDS: OCTREOTIDE ACETATE 1,200 MCG in NS 238.8 ML IV SCH (12:34)
[2020-08-29] MEDS: THIAMINE 100 MG TAB PO SCH (12:34)
[2020-08-29] MEDS: FOLIC ACID 1 MG TAB PO SCH (12:35)
[2020-08-29 16:05] LABS: HEMOGLOBIN 9.7 g/dl (13.5-17.5)
[2020-08-30] VITALS: BP 125/62
[2020-08-30] MEDS: PANTOPRAZOLE SODIUM 40 MG in D5W 50 ML IV SCH ×2 (00:47→05:54)
[2020-08-30 04:00] VITALS: BP 144/70
[2020-08-30 04:42] LABS: BASO # 0.1 10^3/uL (0.0-0.2); EOS # 0.1 10^3/uL (0.0-0.5); EOS % 2.2 % (0.0-3.0); HEMATOCRIT 25.3 % (42.0-52.0); HEMOGLOBIN 8.9 g/dl (13.5-17.5); LYMPH # 1.8 10^3/uL (1.5-5.0); LYMPH % 34.8 % (24.0-44.0); MEAN CORPUSCULAR HEMOGLOBIN 32.1 pg (27.0-33.0); MEAN CORPUSCULAR HGB CONC 35.2 g/dl (32.0-36.5); MEAN CORPUSCULAR VOLUME 91.3 fl (80.0-96.0); MONO # 0.3 10^3/uL (0.0-0.8); MONO % 6.7 % (0.0-5.0); NEUTROPHILS # 2.8 10^3/uL (1.5-8.5); NEUTROPHILS % 54.7 % (36.0-66.0); RED BLOOD COUNT 2.77 10^6/uL (4.30-6.10); WHITE BLOOD COUNT 5.1 10^3/uL (4.0-10.0)
[2020-08-30 04:43] LABS: PLATELET COUNT, AUTOMATED 73 10^3/uL (150-450)
[2020-08-30 05:23] LABS: ALBUMIN 2.4 GM/DL (3.2-5.2); ALT/SGPT 75 U/L (12-78); BLOOD UREA NITROGEN 9 MG/DL (7-18); CALCIUM LEVEL 7.9 MG/DL (8.5-10.1); CARBON DIOXIDE LEVEL 32 MEQ/L (21-32); CHLORIDE LEVEL 99 MEQ/L (98-107); CREATININE FOR GFR 0.76 MG/DL (0.70-1.30); GLOMERULAR FILTRATION RATE > 60.0 (>56); GLUCOSE, FASTING 108 MG/DL (70-100); MAGNESIUM LEVEL 1.8 MG/DL (1.8-2.4); POTASSIUM SERUM 3.5 MEQ/L (3.5-5.1); SODIUM LEVEL 136 MEQ/L (136-145); TOTAL PROTEIN 5.6 GM/DL (6.4-8.2)
[2020-08-30] MEDS: SUCRALFATE SUSP 1GM/10ML UD PO SCH ×3 (07:37→17:28)
[2020-08-30 08:00] VITALS: BP_SYST 133; BP_SYST 136; BP_DIAS 66
--- NOTE | 2020-08-30 08:04 | IPNPDOC ---
Date Seen The patient was seen on 08/30/20. Progress Note SUBJECTIVE: patient was seen and examined at bedside. Overall doing well. Patient states that he has not had any additional episodes of hematemesis since his EGD. Patient denies chest pain, abdominal pain, shortness of breath, n/v/d or subjective chills. OBJECTIVE PHYSICAL EXAMINATION: VITAL SIGNS: please see below General: comfortable, fatigued, no tremulousness, no outward anxiety HEENT: PERRLA, EOMI, sclerae clear Neck: supple, normal ROM, no JVD Respiratory: lungs CTAB, no wheeze, no rales, no crackles CVS: RRR, normal S1, S2, no murmurs Abdo: obese, soft, no masses, no hepatosplenomegaly, BS+, no rebound tenderness Extremities: no edema, pulses 2+, feet warm to touch, no cyanosis. MSK: no joint deformities, normal ROM Neuro: no focal neuro deficits, moving all 4 extremities, CN2-12 intact. Strength 5/5 in all 4 extremities. No nystagmus. Psych: calm, cooperative, AAO x 3 LABORATORY DATA, IMAGING STUDIES, MICROBIOLOGY: Please see below. DVT prophylaxis ordered?: SCDs, TEDs, avoiding chemoprophylaxis in setting of acute blood loss anemia ASSESSMENT AND PLAN: 50 yo M with a hx of liver cirrhosis, steatohepatitis, alcohol use disorder, HTN, HLD, AMY (noncompliant with CPAP), presented to ED with gross hematemesis. Taken to OR for emergent EGD by Dr. Sheppard. Two cratered esophageal ulcers in lower 1/3 of esophagus found (largest 10 mm in diameter). Hemostasis achieved with clips. Numerous small varices in distal esophagus. Patient was transfered to ICU for higher level care in setting of acute blood anemia from PUD and esophageal varies 2/2 chronic etoh abuse and liver cirrhosis. Hgb remained stable since 08/29/20. Transitioned to PPI IV bid, off ggt. Stopped octreotide GGT on 08/30/20. PROBLEMS: #Acute blood loss anemia: jesus hematemesis. s/p 2 units pRBC (Hg 8.9 -> 10.2). 2/2 bleeding esophageal ulcers, esophageal varices. Transfuse for Hgb < 7. Hgb remains stable since 08/29/20 (total 4 units pRBC) at 8.9. #Upper GI bleed: s/p EGD. 2 lower 1/3 esophageal ulcers. Small distal esophageal varices. Protonix IV q12h. DC octreotide drip on 08/30/20. CLD per Dr. Sheppard. Sucralfate suspension. Repeat EGD 2-[address] Sheppard. Cannot exclude ulcerated mass. Advance to FLD. Sucralfate. Will like remain on a FLD for a 4-5 after DC. #Cirrhosis/Steatohepatitis: INR 1.45. Viral hepatitis panel negative. US liver steatohepatosis. Outpatient follow with PCP/GI for fibroscan. Alcohol cessation/rehab. #Transaminitis: 2/2 alcoholic liver cirhosis and steatohepatitis. Stable. #ETOH withdrawal: reports last drink 08/21. ETOH use disorder. CIWA. Ativan 2 mg q4h IV prn. IV thiamine. Folate. # HTN: BP low end. Home antihypertensives continue to be held. Hydralazine IV for SBP > 180. #HLD: lipitor home. #AMY: patient non compliant with home CPAP. Sleep study in 11/2018. DVT ppx: TEDs, SCDs. Avoid chemoprophylaxis in setting of acute blood loss a nemia. Disposition: pending stable hemostasis from bleeding peptic ulcers and varices, continued hemodynamic stability. Admission to span more than 2 midnights. VS, I&O, 24H, [facility] Vital Signs/I&O Vital Signs Date Time Temp Pulse Resp B/P (MAP) Pulse Ox O2 Delivery O2 Flow Rate FiO2 08/30/20 04:00 98.4 73 12 144/70 (94) 93 Nasal Cannula 2.0 08/29/20 06:09 I&O- Last 24 Hours up to 6 AM 08/30/20 06:00 Intake Total 2805 ml Output Total 2650 ml Balance 155 ml Laboratory Data 24H LABS Laboratory Tests 2 08/30/20 04:25: Immature Granulocyte % (Auto) 0.6, Neutrophils (%) (Auto) 54.7, Lymphocytes (%) (Auto) 34.8, Monocytes (%) (Auto) 6.7H, Eosinophils (%) (Auto) 2.2, Basophils (%) (Auto) 1.0, Neutrophils # (Auto) 2.8, Lymphocytes # (Auto) 1.8, Monocytes # (Auto) 0.3, Eosinophils # (Auto) 0.1, Basophils # (Auto) 0.1, Nucleated Red Blood Cells % (auto) 0.0, Immature Platelet Fraction 2.7, Anion Gap 5L, Glomerular Filtration Rate > 60.0, Calcium Level 7.9L, Magnesium Level 1.8, Total Bilirubin 2.0H, Aspartate Amino Transf (AST/SGOT) 120H, Alanine Aminotransferase (ALT/SGPT) 75, Alkaline Phosphatase 95, Total Protein 5.6L, Albumin 2.4L, Albumin/Globulin Ratio 0.8 CBC/BMP Laboratory Tests 08/29/20 10:00 08/29/20 15:57 08/30/20 04:25 YAAKOV GOOD MD Aug 30, 2020 08:04
[2020-08-30] MEDS: PANTOPRAZOLE 40MG VIAL (C9113 PER 1) IV SCH ×2 (09:17→21:08)
[2020-08-30] MEDS: MULTIVITAMINS/MINERALS THERAP 1 TAB PO SCH (09:17)
[2020-08-30] MEDS: ATORVASTATIN 20 MG TAB PO SCH (09:17)
[2020-08-30] MEDS: amLODIPine 5 MG TAB PO SCH (09:18)
[2020-08-30] MEDS: FOLIC ACID 1 MG TAB PO SCH (09:19)
[2020-08-30] MEDS: THIAMINE 100 MG TAB PO SCH (09:19)
[2020-08-30] MEDS: lisinopriL 5 MG TAB PO SCH (09:20)
[2020-08-30] MEDS: INDAPAMIDE 1.25MG TABLET PO SCH (11:50)
[2020-08-30 12:00] VITALS: BP 128/74
[2020-08-30 12:23] LABS: HEPATITIS A ANTIBODY IGM NEGATIVE (NEGATIVE); HEPATITIS B CORE ANTIBODY IGM NEGATIVE (NEGATIVE); HEPATITIS B SURFACE ANTIGEN NEGATIVE (NEGATIVE); HEPATITIS C VIRUS ABY INDEX 0.1 INDEX (<0.8)
[2020-08-30 16:00] VITALS: BP 119/61
[2020-08-30 20:00] VITALS: BP 127/66
[2020-08-31] VITALS: BP 133/68
[2020-08-31 04:00] VITALS: BP 133/70
[2020-08-31 04:55] LABS: BASO # 0.1 10^3/uL (0.0-0.2); BASO % 1.1 % (0.0-1.0); EOS # 0.1 10^3/uL (0.0-0.5); EOS % 2.6 % (0.0-3.0); HEMATOCRIT 26.5 % (42.0-52.0); LYMPH # 1.9 10^3/uL (1.5-5.0); LYMPH % 40.9 % (24.0-44.0); MEAN CORPUSCULAR HEMOGLOBIN 31.6 pg (27.0-33.0); MONO # 0.4 10^3/uL (0.0-0.8); MONO % 9.1 % (0.0-5.0); NEUTROPHILS # 2.1 10^3/uL (1.5-8.5); NEUTROPHILS % 45.4 % (36.0-66.0); PLATELET COUNT, AUTOMATED 93 10^3/uL (150-450); RED BLOOD COUNT 2.85 10^6/uL (4.30-6.10); WHITE BLOOD COUNT 4.6 10^3/uL (4.0-10.0)
[2020-08-31 05:17] LABS: ALBUMIN 2.5 GM/DL (3.2-5.2); ALT/SGPT 74 U/L (12-78); BILIRUBIN,TOTAL 1.7 MG/DL (0.2-1.0); BLOOD UREA NITROGEN 5 MG/DL (7-18); CALCIUM LEVEL 8.1 MG/DL (8.5-10.1); CARBON DIOXIDE LEVEL 32 MEQ/L (21-32); CHLORIDE LEVEL 99 MEQ/L (98-107); CREATININE FOR GFR 0.76 MG/DL (0.70-1.30); GLOMERULAR FILTRATION RATE > 60.0 (>56); GLUCOSE, FASTING 100 MG/DL (70-100); MAGNESIUM LEVEL 1.9 MG/DL (1.8-2.4); POTASSIUM SERUM 3.4 MEQ/L (3.5-5.1); SODIUM LEVEL 137 MEQ/L (136-145); TOTAL PROTEIN 5.9 GM/DL (6.4-8.2)
[2020-08-31 08:00] VITALS: BP 137/65
[2020-08-31] MEDS ORDERED: POTASSIUM CHLORIDE 10 MEQ SR TABLET PO ONE (08:00)
[2020-08-31] MEDS ORDERED: PANT40TA29 PO (08:03)
[2020-08-31] MEDS ORDERED: SUCR1ORA PO (08:03)
[2020-08-31] MEDS: SUCRALFATE SUSP 1GM/10ML UD PO SCH ×2 (08:21→12:05)
[2020-08-31] MEDS: MULTIVITAMINS/MINERALS THERAP 1 TAB PO SCH (08:22)
[2020-08-31 08:23] VITALS: BP 137/65
[2020-08-31] MEDS: THIAMINE 100 MG TAB PO SCH (08:23)
[2020-08-31] MEDS: ATORVASTATIN 20 MG TAB PO SCH (08:23)
[2020-08-31] MEDS: INDAPAMIDE 1.25MG TABLET PO SCH (08:23)
[2020-08-31] MEDS: amLODIPine 5 MG TAB PO SCH (08:23)
[2020-08-31] MEDS: lisinopriL 5 MG TAB PO SCH (08:23)
[2020-08-31] MEDS: FOLIC ACID 1 MG TAB PO SCH (08:24)
[2020-08-31] MEDS: PANTOPRAZOLE 40MG VIAL (C9113 PER 1) IV SCH (08:24)
--- NOTE | 2020-08-31 14:12 | DS.PDOC ---
Discharge Summary General Date of Admission Aug 27, 2020 at 15:00 Date of Discharge 08/31/20 Attending Physician: Pia Mendoza MD Discharge Summary HISTORY OF PRESENT ILLNESS: Patient is a 50yo male with PMH of liver cirrhosis/steatohepatitis 2/2 alcohol abuse (reported 6-10 beers/day or 5 tall-boys/day), htn, hld, psoriasis, and apoorva (non-compliant on home cpap) who presented to the ED after three reported episodes of jesus red hematemesis at home over the past 24 hours with melena. He states he's had hematemesis episodes in the past, but never to this volume and or jesus red color. Other than some crackers, he has had nothing to eat or drink since the initial episode of hematemesis. He reports his last drink of alcohol was 6 days ago (Sunday, 08/21). He endorses an accompanying significant headache. He has no history of any prior egd studies since, per the ed, he only ever reported social alcohol use and never presented for the previous hematemesis episodes. Per records, he's had three previous colonoscopies due to crc in a first degree relative, with the last in Oct 2016 (internal hemorrhoids, diverticulosis, and one small polyp that was removed). In the ED, he had a witnessed episode of hematemesis in which 200cc were expelled with multiple clots. He was subsequently given a 50 mcg push of octreotide, 80 mg iv protonix, and 4 mg iv zofran. His initial H&H was 8.9/29.9 (for reference, [facility] shows on 05/27/2020 an h&h of 13.9/39.8). A type and screen was performed and consent for blood products was obtained. Two units of prbc were ordered but had yet to be transfused. Dr. Sheppard of gastroenterology was contacted and the patient was prepped for an emergent egd. He was admitted for acute GI bleed. HOSPITAL COURSE: Patient was started on IV Protonix twice a day, octreotide drip and taken for emergent EGD. Several esophageal ulcers and varices right in a fight. Bleeding areas were clipped. Over the next several days the patient's H&H main stable. He did not require additional transfusions. He was transitioned off of octreotide drip and diet was advanced slowly. The patient received a total of 4 units PRBC his hospital stay.The patient had no other bleeding episodes and tolerated soft and later regular diet. On 08/31/2020 the patient was discharged home with new medication of Protonix twice a day after discussion with GI. He is to follow-up in the outpatient setting in 12 weeks and again later in 46 weeks for repeat EGD for questionable esophageal mass. He is to remain on a soft diet until he follows up with GI as outpatient. At the time of discharge the patient denied chest pain, shortness of breath, nausea, vomiting, bleeding, fevers, chills. 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 He is and has at least 2 children. He has the aforementioned alcohol history. He denies any history of smoking. FAMILY HISTORY: FatherMI 30 years ago and is status post multiple catheterizations; colon cancer 20 years ago. ALLERGIES: Please see below. DISCHARGE MEDICATIONS: Please see below. PHYSICAL EXAMINATION: CONSTITUTIONAL: No acute distress, resting comfortably, AAO x 3 EYES: PERRLA, EOM intact HENT, MOUTH: Normocephalic, atraumatic, moist mucous membranes, NECK: SUPPLE, no JVD, no lymphadenopathy, no carotid bruit CV: Regular rate and rhythm, S1S2 normal, no murmurs/rubs/gallops RESPIRATORY: Clear to auscultation bilaterally, no rales/rhonchi/wheezes GI: BS positive in 4 quadrants, soft, nontender, nondistended, no rebound or guarding, no organomegaly. Stoma in RUQ appears healthy : Deferred MUSCULOSKELETAL: Normal ROM. No cyanosis, clubbing, swelling, joint deformity, extremity edema INTEGUMENTARY: Intact, no rashes, no lesions, no erythema NEUROLOGIC: Cranial Nerves II-XII are intact, no focal deficits PSYCHIATRIC: Mood and affect are normal LABORATORY DATA: Please see below IMAGING: US liver: 1. Hepatic steatosis/cirrhosis. 2. Negative gallbladder. EGD: Multiple esophageal ulcers, esophageal varices ASSESSMENT: 50 y/o M admitted for acute GI bleed 2/2 to esophageal ulcers, esophageal varices s/p clipping to be discharged today to home. PLAN: #Acute blood loss anemia 2/2 bleeding esophageal ulcers, esophageal varices. EGD 08/27/20. No jesus hematemesis. S/p 4 units pRBC this hospital stay. Hgb remains stable since 08/29/20 F/u with PCP #Upper GI bleed s/p EGD. 2 lower 1/3 esophageal ulcers. Small distal esophageal varices. Cannot exclude ulcerated mass. Tolerating advanced diet, to stay on soft diet until next GI appt follow up. PPI BID. F/u with GI in 1-2 weeks. Will need f/u EGD in several weeks. Stopped Ibuprofen and other home med. #Cirrhosis/Steatohepatitis: INR stab.e Viral hepatitis panel negative. US liver steatohepatosis. Outpatient follow with PCP/GI for fibroscan. Alcohol cessation/rehab. D/c home med. #Transaminitis: 2/2 alcoholic liver cirhosis and steatohepatitis. Stable. #ETOH withdrawal: reports last drink 08/21. no s/s of withdrawl # HTN. Stable. C/w home med. #HLD: lipitor home. #APOORVA: patient non compliant with home CPAP. Sleep study in 11/2018. Disposition: Discharge home today with f/u with both PCP and GI in next 1-2 weeks. TIME SPENT ON DISCHARGE: Greater than 30 minutes. Vital Signs/I&Os Vital Signs Date Time Temp Pulse Resp B/P (MAP) Pulse Ox O2 Delivery O2 Flow Rate FiO2 08/31/20 08:23 137/65 08/31/20 08:23 79 08/31/20 08:00 97.4 14 98 Room Air 08/31/20 04:00 2.0 08/29/20 06:09 I&O- Last 24 Hours up to 6 AM 08/31/20 06:00 Intake Total 1700 ml Output Total 2900 ml Balance -1200 ml Laboratory Data Labs 24H Laboratory Tests 2 08/31/20 04:26: Immature Granulocyte % (Auto) 0.9, Neutrophils (%) (Auto) 45.4, Lymphocytes (%) (Auto) 40.9, Monocytes (%) (Auto) 9.1H, Eosinophils (%) (Auto) 2.6, Basophils (%) (Auto) 1.1H, Neutrophils # (Auto) 2.1, Lymphocytes # (Auto) 1.9, Monocytes # (Auto) 0.4, Eosinophils # (Auto) 0.1, Basophils # (Auto) 0.1, Nucleated Red Blood Cells % (auto) 0.0, Immature Platelet Fraction 3.7, Anion Gap 6L, Glomerular Filtration Rate > 60.0, Calcium Level 8.1L, Magnesium Level 1.9, Tota l Bilirubin 1.7H, Aspartate Amino Transf (AST/SGOT) 110H, Alanine Aminotransferase (ALT/SGPT) 74, Alkaline Phosphatase 132H, Total Protein 5.9L, Albumin 2.5L, Albumin/Globulin Ratio 0.7 CBC/BMP Laboratory Tests 08/31/20 04:26 Discharge Medications Scheduled Amlodipine Besylate (Amlodipine Besylate) 5 Mg Tab, 5 MG PO DAILY, (Reported) Atorvastatin Calcium (Atorvastatin Calcium) 20 Mg Tablet, 20 MG PO DAILY, (Reported) Indapamide (Indapamide) 1.25 Mg Tablet, 1.25 MG PO DAILY, (Reported) Lisinopril (Lisinopril) 5 Mg Tablet, 5 MG PO DAILY, (Reported) Multivitamin (Multivitamins) 1 Each Capsule, 1 CAP PO DAILY, (Reported) Pantoprazole Sodium (Pantoprazole Sodium) 40 Mg Tablet.dr, 40 MG PO BID Thiamine HCl (Thiamine HCl) 100 Mg Tablet, 100 MG PO DAILY, (Reported) Allergies Coded Allergies: No Known Allergies (Verified , 01/15/17) Pia Mendoza MD Aug 31, 2020 14:12
== END 2020-08-31 12:18 | disposition home or self-care (01) | DRG 243 ==
LOC: M ED 12:17 → EDBD 12:17 → M ED 14:04 → M ED INP 15:00 → M ICU 15:51
PROVIDERS: ADMIT Internal Medicine; ATTEND Internal Medicine
PROC: 30233N1 Transfusion of Nonautologous Red Blood Cells into Peripheral Vein, Percutaneous Approach (ICD-10-PCS; 2020-08-27)
PROC: 0W3P8ZZ Control Bleeding in Gastrointestinal Tract, Via Natural or Artificial Opening Endoscopic (ICD-10-PCS; principal; 2020-08-27 13:24)
DX: K22.11 Ulcer of esophagus with bleeding (principal); I85.11 Secondary esophageal varices with bleeding; D62 Acute posthemorrhagic anemia; K70.30 Alcoholic cirrhosis of liver without ascites; K92.1 Melena; I10 Essential (primary) hypertension; Z91.19 Patient's noncompliance with other medical treatment and regimen; L40.8 Other psoriasis; G47.33 Obstructive sleep apnea (adult) (pediatric); K57.30 Diverticulosis of large intestine without perforation or abscess without bleeding; Z79.899 Other long term (current) drug therapy; E78.5 Hyperlipidemia, unspecified

== ENCOUNTER → 2020-10-01 | Outpatient (CLI) | payer BC, OTHER ==
[~2020-10-01] MED LIST changes: +ATOR1TAB21 PO; +B-10TAB2 PO; +IBUP200T45 PO; +INDA125TA PO; +LISI-542 PO; +MULTCAP PO; +PANT40TA29 PO; +SUCR1ORA PO; +THIA100T7 PO; +VASC1CAP2 PO
[2020-10-01 16:08] LABS: BASO # 0.1 10^3/uL (0.0-0.2); BASO % 0.7 % (0.0-1.0); EOS # 0.2 10^3/uL (0.0-0.5); EOS % 3.5 % (0.0-3.0); HEMATOCRIT 36.6 % (42.0-52.0); HEMOGLOBIN 12.4 g/dl (13.5-17.5); LYMPH # 1.9 10^3/uL (1.5-5.0); LYMPH % 26.9 % (24.0-44.0); MEAN CORPUSCULAR HEMOGLOBIN 30.9 pg (27.0-33.0); MEAN CORPUSCULAR HGB CONC 33.9 g/dl (32.0-36.5); MEAN CORPUSCULAR VOLUME 91.3 fl (80.0-96.0); MONO # 0.6 10^3/uL (0.0-0.8); MONO % 8.3 % (0.0-5.0); NEUTROPHILS # 4.2 10^3/uL (1.5-8.5); NEUTROPHILS % 60.3 % (36.0-66.0); PLATELET COUNT, AUTOMATED 206 10^3/uL (150-450); RED BLOOD COUNT 4.01 10^6/uL (4.30-6.10); WHITE BLOOD COUNT 6.9 10^3/uL (4.0-10.0)
[2020-10-01 16:20] LABS: INR 1.06
[2020-10-01 16:39] LABS: ALBUMIN 3.8 GM/DL (3.2-5.2); ALT/SGPT 40 U/L (12-78); BILIRUBIN,DIRECT 0.2 MG/DL (0.0-0.2); BILIRUBIN,TOTAL 0.3 MG/DL (0.2-1.0); BLOOD UREA NITROGEN 11 MG/DL (7-18); CREATININE FOR GFR 0.63 MG/DL (0.70-1.30); GLOMERULAR FILTRATION RATE > 60.0 (>56); IRON (FE) 36 UG/DL (65-175); PERCENT SATURATION 8.6 % (19.7-50.0); TOTAL IRON BINDING CAPACITY 419 UG/DL (250-450); TOTAL PROTEIN 8.5 GM/DL (6.4-8.2)
[2020-10-04 17:07] LABS: ANCA-ATYPICAL <1:20 titer (Neg:<1:20); ANTI-MITOCHONDRIAL ANTIBODY <20.0 Units (0.0-20.0); ANTINUCLEAR ANTIBODIES DIRECT Negative (Negative); CERULOPLASMIN 21.8 mg/dL (16.0-31.0); CYTOPLASMIC NEUTROP AB ANCA-C <1:20 titer (Neg:<1:20); LIVER-KIDNEY MICROSOMAL ABY <20.1 Units (0.0-20.0); PERINUCLEAR AB ANCA-P <1:20 titer (Neg:<1:20)
== END ==
LOC: M LAB 15:05
PROVIDERS: ATTEND Internal Medicine Gastroenterology
DX: K70.30 Alcoholic cirrhosis of liver without ascites (principal)

== ENCOUNTER → 2020-10-08 | Outpatient (CLI) | payer BC, OTHER ==
--- NOTE | 2020-10-08 11:14 | REP ---
INDICATION: ALCOHOLIC HEPATITIS W/OUT ASCITES. Thrombocytopenia, portal hypertension. COMPARISON: Comparison scanning August 27, 2020.. TECHNIQUE: Transabdominal right upper quadrant scanning is performed. Portal venous Doppler ultrasound evaluation is included. FINDINGS: Scanning through the right upper quadrant of the abdomen demonstrates normal sized and walled gallbladder without evidence of stone or polyp. Common bile duct is normal measuring 0.6 cm in greatest diameter. Coarse liver texture is seen with poor hepatic insulin a ward consistent with fatty infiltration. Exam quality is inhibited by patient body habitus and bowel gas. The pancreas is largely obscured. There is no visible ascites. Normal caliber aorta is seen. The spleen is mildly enlarged measuring 13.7 cm in greatest diameter. No focal splenic lesion is seen. Renal cortical echogenicity pattern is normal in contours are smooth bilaterally. The right kidney measures 15.4 x 6.3 x 7.3 cm. Left renal dimensions are 15.2 x 6.4 x 6.1 cm. Port Portal venous Doppler. Normal direction and flow velocities are seen in the +splenic vein and portal vein. Portal vein measures 14 mm in diameter which is normal. 19.1 centimeters/second is the venous velocity in the portal vein. Splenic vein velocity is 43.8 centimeters/second. Normal direction of flow and some loss of phasicity is seen in the hepatic veins. Hepatic arterial Doppler flow velocity is normal at 57.8 centimeters/second, resistive index 0.75. IMPRESSION: Coarse liver texture poor in send a ward consistent with fatty infiltration. No focal liver lesion. No evidence of ascites. Mild loss of phasicity in the hepatic veins. Otherwise negative visceral portal vein Doppler assessment. <Electronically signed by Tommy Montejo > 10/08/20 1111
== END ==
LOC: M RAD 08:25
PROVIDERS: ATTEND Internal Medicine Gastroenterology
DX: K70.10 Alcoholic hepatitis without ascites (principal); D69.6 Thrombocytopenia, unspecified; K76.6 Portal hypertension

== ENCOUNTER → 2020-11-06 | Outpatient (CLI) | payer BC, OTHER ==
[~2020-11-06] MED LIST changes: +CLOB0.0548; +LISI10TA4; +SUCR1ORA2; +VITMTA PO
== END ==
LOC: M LABSMTC 09:55
PROVIDERS: ATTEND Anesthesiology
DX: Z01.812 Encounter for preprocedural laboratory examination (principal); Z20.828 Contact with and (suspected) exposure to other viral communicable diseases

== ENCOUNTER 2020-11-11 12:48 | Day surgery (SDC) | payer BC, OTHER ==
[~2020-11-11] VITALS: Ht 167.6 cm; Wt 109.3 kg
[~2020-11-11 12:48] MED LIST changes: +NS 1,000 ML IV ONE
[2020-11-11] MEDS ORDERED: propofoL 200 MG/20 ML VIAL As Ordered ONE (12:57)
[2020-11-11] MEDS ORDERED: LIDOCAINE 2% 100MG/5ML SDV (FOR ANES.) As Ordered ONE (12:57)
[2020-11-11] MEDS ORDERED: fentaNYL 100 MCG/2 ML INJECTION (J3010) As Ordered ONE (12:58)
--- NOTE | 2020-11-11 14:26 | ROOR ---
Patient Name: Man Dominguez Procedure Date: 11/11/2020 1:58 PM Date of : 1970 Age: 50 Room: [facility] Gender: Male Note Status: Finalized Procedure: Upper GI endoscopy Indications: Follow-up of esophageal varices with bleeding Providers: Saud SHEPPARD MD Referring MD: Shari Mitchell NP Requesting Provider: Medicines: Monitored Anesthesia Care Complications: No immediate complications. Procedure: Pre-Anesthesia Assessment: - The heart rate, respiratory rate, oxygen saturations, blood pressure, adequacy of pulmonary ventilation, and response to care were monitored throughout the procedure. The Endoscope was introduced through the mouth, and advanced to the second part of duodenum. The upper GI endoscopy was accomplished without difficulty. The patient tolerated the procedure well. Findings: A few venous blebs were found in the lower third of the esophagus. An endoclip was found at the gastroesophageal junction. A single diminutive mucosal nodule with a localized distribution was found at the gastroesophageal junction. Biopsies were taken with a cold forceps for histology. The entire examined stomach was normal. The cardia and gastric fundus were normal on retroflexion. The examined duodenum was normal. Impression: - A few venous blebs but no varices were seen in the esophagus. - Two endoclip with small granulation tissue and a variable Z line was found in the lower esophagus. biopsied. - Normal stomach. - Normal examined duodenum. (- I do not see any significant varices in esophagus or stomach, Varices appear to have resolved) Recommendation: - Continue present medications. - Observe patient's clinical course. - Telephone endoscopist for pathology results in 2 weeks. Procedure Code(s): --- Professional --- 52087, Esophagogastroduodenoscopy, flexible, transoral; with biopsy, single or multiple Diagnosis Code(s): --- Professional --- K22.8, Other specified diseases of esophagus Z97.8, Presence of other specified devices I85.01, Esophageal varices with bleeding CPT copyright 2019 [employer]. All rights reserved. The codes documented in this report are preliminary and upon rn security review may be revised to meet current compliance requirements. Saud Sheppard MD Saud SHEPPARD MD 11/11/2020 2:25:52 PM Electronically signed by Saud SHEPPARD MD Number of Addenda: 0 Note Initiated On: 11/11/2020 1:58 PM Estimated Blood Loss: Estimated blood loss: none.
[2020-11-11 14:40] VITALS: BP 147/82
== END 2020-11-11 14:56 | disposition home or self-care (01) ==
LOC: M OPP 12:48
PROVIDERS: ATTEND Internal Medicine Gastroenterology
DX: I85.01 Esophageal varices with bleeding (principal); K22.8 Other specified diseases of esophagus
CPT/HCPCS: 43239; 88305; 88312; J3010

== ENCOUNTER → 2021-06-30 | Outpatient (REF) | payer OTHER, BC ==
[~2021-06-30] MED LIST changes: -LISI-542 PO; +LISI-898 PO; +LISI10TA22; +LISI10TA22 PO; -LISI10TA4; -LISI10TA4 PO; -NS 1,000 ML IV ONE
[2021-06-30 18:42] LABS: TOTAL PROTEIN 7.5 GM/DL (6.4-8.2)
[2021-07-01 14:38] LABS: ALBUMIN 4.25 GM/DL (3.29-5.55); ALBUMIN % 56.6 % (55.8-66.1); ALPHA-1-GLOBULIN % 3.6 % (2.9-4.9); ALPHA-1-GLOBULINS 0.27 GM/DL (0.17-0.41); ALPHA-2-GLOBULINS 0.89 GM/DL (0.42-0.99); ALPHA-2-GLOBULINS % 11.8 % (7.1-11.8); BETA-1-GLOBULINS % 6.7 % (4.7-7.2); BETA-2-GLOBULINS 0.52 GM/DL (0.19-0.55); BETA-2-GLOBULINS % 6.9 % (3.2-6.5); GAMMA GLOBULIN % 14.4 % (11.1-18.8); GAMMA GLOBULINS 1.08 GM/DL (0.65-1.58)
== END ==
LOC: M LAB REF 16:25
PROVIDERS: ATTEND Nurse Practitioner Adult Health
DX: R80.8 Other proteinuria (principal)

== ENCOUNTER → 2022-01-07 | Outpatient (CLI) | payer BC, OTHER ==
[~2022-01-07] MED LIST changes: -DOXY100C PO; +DOXY100C3 PO; +FARX1TAB3 PO; -IBUP200T45 PO; +IBUP200T46 PO; -LISI-898 PO; -LISI10TA22; +LISI5TAB11 PO; +METF500T13 PO
== END ==
LOC: M LABSMTC 08:54
PROVIDERS: ATTEND Anesthesiology
DX: Z01.812 Encounter for preprocedural laboratory examination (principal); Z20.822 Contact with and (suspected) exposure to COVID-19

== ENCOUNTER 2022-01-11 08:41 | Day surgery (SDC) | payer BC, OTHER ==
[~2022-01-11] VITALS: Ht 167.6 cm; Wt 106.5 kg
[~2022-01-11 08:41] MED LIST changes: +NS 1,000 ML IV ONE
[2022-01-11] MEDS ORDERED: fentaNYL 100 MCG/2 ML INJECTION As Ordered ONE (10:26)
[2022-01-11 11:25] VITALS: BP 136/60
== END 2022-01-11 11:28 | disposition home or self-care (01) ==
LOC: M OPP 08:41
PROVIDERS: ATTEND Internal Medicine Gastroenterology
DX: Z12.11 Encounter for screening for malignant neoplasm of colon (principal); Z86.010 Personal history of colon polyps; Z80.0 Family history of malignant neoplasm of digestive organs; K64.0 First degree hemorrhoids; K21.00 Gastro-esophageal reflux disease with esophagitis, without bleeding; K44.9 Diaphragmatic hernia without obstruction or gangrene; R12 Heartburn; Z79.84 Long term (current) use of oral hypoglycemic drugs; Z79.899 Other long term (current) drug therapy
CPT/HCPCS: 43239; 45378; 88305; J3010

== ENCOUNTER → 2023-06-26 | Outpatient (REF) | payer BC, OTHER ==
[~2023-06-26] MED LIST changes: +INDA1.253 PO; -INDA125TA PO; -NS 1,000 ML IV ONE
[2023-06-26 13:25] LABS: ETHYL ALCOHOL (ETHANOL) < 0.003 % (0.000-0.010); OSMOLALITY SERUM 288 MOSM/KG (275-295)
== END ==
LOC: M LAB REF 12:34
PROVIDERS: ATTEND Nurse Practitioner Adult Health
DX: K70.30 Alcoholic cirrhosis of liver without ascites (principal)

== ENCOUNTER → 2024-10-03 | Outpatient (REF) | payer OTHER, BC ==
[2024-10-03 12:41] LABS: APPEARANCE, URINE CLEAR (CLEAR); BACTERIA, URINE AUTO NEGATIVE (NEGATIVE); BILIRUBIN, URINE AUTO NEGATIVE (NEGATIVE); BLOOD, URINE BLOOD NEGATIVE (NEGATIVE); COLOR, URINE STRAW (YELLOW); GLUCOSE, URINE (UA) AUTO 3+ mg/dL (NEGATIVE); KETONE, URINE AUTO NEGATIVE (NEGATIVE); LEUKOCYTE ESTERASE, URINE AUTO NEGATIVE (NEGATIVE); NITRITE, URINE AUTO NEGATIVE (NEGATIVE); PROTEIN, URINE AUTO NEGATIVE (NEGATIVE); RBC, URINE AUTO 0 /HPF (0-3); SPECIFIC GRAVITY URINE AUTO 1.015 (1.002-1.035); SQUAMOUS EPITHELIAL CELL UR AU 0 /HPF (0-6); UROBILINOGEN, URINE AUTO 0.2 mg/dL (0.0-2.0); WBC, URINE AUTO 0 /HPF (0-3)
== END ==
LOC: M LAB REF 12:02
PROVIDERS: ATTEND Physician Assistant Medical
DX: M25.511 Pain in right shoulder (principal)

== ENCOUNTER → 2024-12-22 | Outpatient (CLI) | payer BC, OTHER | LOC: M WUC 14:44 | PROVIDERS: ATTEND Physician Assistant Medical | DX: R05.9 Cough, unspecified (principal); R06.2 Wheezing ==

== ENCOUNTER → 2025-01-27 | Outpatient (REF) | payer BC, OTHER | LOC: M LAB REF 18:10 | PROVIDERS: ATTEND Physician Assistant Medical | DX: E05.90 Thyrotoxicosis, unspecified without thyrotoxic crisis or storm (principal) ==

== ENCOUNTER → 2025-02-17 | Outpatient (CLI) | payer BC | LOC: M RAD 14:04 | PROVIDERS: ATTEND Internal Medicine | DX: I48.91 Unspecified atrial fibrillation (principal); E11.9 Type 2 diabetes mellitus without complications; I65.23 Occlusion and stenosis of bilateral carotid arteries ==

== ENCOUNTER → 2025-04-06 | Outpatient (REF) | payer OTHER ==
[~2025-04-06] MED LIST changes: -SUCR1ORA2; +SUCR1ORA20
== END ==
LOC: M LAB REF 12:02
PROVIDERS: ATTEND Physician Assistant Medical
DX: E05.90 Thyrotoxicosis, unspecified without thyrotoxic crisis or storm (principal)

== ENCOUNTER 2025-06-06 07:16 | Inpatient (IN) | payer BC, OTHER ==
[2025-06-06] VITALS (14 sets, daily range): BP systolic 90–152; BP diastolic 59–77; TEMP 98.4–98.5; O2SAT 72–100
[~2025-06-06] VITALS: Ht 167.6 cm; Wt 100.2 kg
[2025-06-06] MEDS ORDERED: ISOVUE-370 76% 100 ML VIAL As Ordered ONE (08:24)
[2025-06-06 08:59] LABS: ETHYL ALCOHOL (ETHANOL) < 0.003 % (0.000-0.010)
[2025-06-06 09:00] LABS: CPK CREATINE PHOSPHOKINASE 377 U/L (46-171)
[2025-06-06 09:02] LABS: OSMOLALITY SERUM 244 MOSM/KG (275-295)
[2025-06-06] MEDS: ACETAMINOPHEN *IV* 1,000 MG in IV 1 EA IV ONE (09:07)
[2025-06-06] MEDS: FOLIC ACID 1 MG TAB PO SCH (09:08)
[2025-06-06] MEDS: MULTIVITAMINS/MINERALS THERAP 1 TAB PO SCH (09:08)
[2025-06-06] MEDS: THIAMINE 100 MG TAB PO SCH (09:08)
[2025-06-06] MEDS: NS 500 ML IV ONE (09:08)
[2025-06-06 09:12] LABS: INR 1.26
[2025-06-06 09:32] LABS: ALT/SGPT 64 U/L (7.0-40); AST/SGOT 89 U/L (<34); CALCIUM LEVEL 9.0 MG/DL (8.5-10.1); CARBON DIOXIDE LEVEL 32 MMOL/L (20-31); CHLORIDE LEVEL 66 MMOL/L (98-107); CK-MB VALUE MASS 13.4 NG/ML (<3.6); CREATININE FOR GFR 0.61 MG/DL (0.70-1.30); FREE T4 0.91 NG/DL (0.89-1.76); GLOMERULAR FILTRATION RATE > 90.0 (>56); MAGNESIUM LEVEL 1.8 MG/DL (1.8-2.4); MB/CK RELATIVE INDEX 3.55 (< OR =4); POTASSIUM SERUM 2.8 MMOL/L (3.5-5.1); SODIUM LEVEL 109 MMOL/L (136-145)
[2025-06-06] MEDS: POTASSIUM CHLORIDE 10MEQ SR TABLET PO ONE ×2 (09:47→13:43)
[2025-06-06 10:19] LABS: BASO # 0.0 10^3/uL (0.0-0.2); BASO % 0.1 % (0.0-1.0); EOS # 0.1 10^3/uL (0.0-0.5); EOS % 0.7 % (0.0-3.0); LYMPH # 0.8 10^3/uL (1.5-5.0); LYMPH % 10.6 % (24.0-44.0); MONO # 0.6 10^3/uL (0.0-0.8); MONO % 7.8 % (2.0-8.0); NEUTROPHILS # 6.1 10^3/uL (1.5-8.5); NEUTROPHILS % 79.6 % (36.0-66.0); PLATELET COUNT, AUTOMATED 139 10^3/uL (150-450)
[2025-06-06] MEDS: SODIUM CHLORIDE 3% 100 ML IV ONE (10:29)
[2025-06-06 10:58] LABS: CK-MB VALUE MASS 11.8 NG/ML (<3.6)
[2025-06-06 11:00] LABS: CPK CREATINE PHOSPHOKINASE 318 U/L (46-171); MB/CK RELATIVE INDEX 3.71 (< OR =4)
[2025-06-06 11:01] LABS: SODIUM,RANDOM URINE 20.0 MMOL/L
[2025-06-06] MEDS ORDERED: GLUCOSE 4 GM CHEW PO PRN (11:15)
[2025-06-06] MEDS ORDERED: GLUCAGON INJ 1 MG VIAL SC PRN (11:15)
[2025-06-06] MEDS ORDERED: DEXTROSE 50% 50 ML SYRINGE IV PRN (11:15)
[2025-06-06 11:35] LABS: CORTISOL BASELINE 44.1 UG/DL (4.3-22.4)
[2025-06-06 12:11] LABS: INR 1.17
[2025-06-06 12:25] LABS: OSMOLALITY SERUM 252 MOSM/KG (275-295)
[2025-06-06 12:27] LABS: CREATININE FOR GFR 0.53 MG/DL (0.70-1.30); GLOMERULAR FILTRATION RATE > 90.0 (>56)
[2025-06-06] MEDS: PANTOPRAZOLE 40MG VIAL IV SCH (12:35)
[2025-06-06] MEDS: INSULIN LISPRO (NovoLOG) PER UNIT SC SCH (12:35)
[2025-06-06 12:37] LABS: CALCIUM LEVEL 9.1 MG/DL (8.5-10.1); CARBON DIOXIDE LEVEL 30 MMOL/L (20-31); CHLORIDE LEVEL 71 MMOL/L (98-107); CREATININE FOR GFR 0.54 MG/DL (0.70-1.30); GLOMERULAR FILTRATION RATE > 90.0 (>56); POTASSIUM SERUM 2.9 MMOL/L (3.5-5.1); SODIUM LEVEL 112 MMOL/L (136-145)
[2025-06-06 12:51] LABS: ESTIMATED AVERAGE GLUCOSE 157.0 MG/DL (60-110)
[2025-06-06 13:25] LABS: MAGNESIUM LEVEL 1.9 MG/DL (1.8-2.4)
[2025-06-06] MEDS ORDERED: LISI20TA33 PO (13:43)
[2025-06-06] MEDS ORDERED: MULT-40 PO (13:43)
[2025-06-06] MEDS: KCL 10MEQ/100ML SWI (KRUN) 10 MEQ in IV 1 EA IV SCH ×2 (13:44→15:50)
[2025-06-06] MEDS ORDERED: METH-1387 PO (13:46)
[2025-06-06] MEDS ORDERED: TOPR50TA PO (13:46)
[2025-06-06] MEDS ORDERED: ELIQ5TAB PO (13:46)
[2025-06-06] MEDS ORDERED: HOME MED LIST COMPLETE! XX SCH (13:50)
[2025-06-06] MEDS: NS (Normal Saline) 0.9% 1,000 ML IV SCH (15:04)
[2025-06-06 18:18] LABS: CALCIUM LEVEL 8.6 MG/DL (8.5-10.1); CARBON DIOXIDE LEVEL 32 MMOL/L (20-31); CHLORIDE LEVEL 75 MMOL/L (98-107); CREATININE FOR GFR 0.60 MG/DL (0.70-1.30); GLOMERULAR FILTRATION RATE > 90.0 (>56); POTASSIUM SERUM 3.4 MMOL/L (3.5-5.1); SODIUM LEVEL 115 MMOL/L (136-145)
[2025-06-06] MEDS: D5W 1,000 ML IV SCH (19:26)
[2025-06-06] MEDS: ENOXAPARIN 100 MG/1 ML SYRINGE (J1650 PER 10MG) SC SCH (20:57)
[2025-06-06] MEDS: DESMOPRESSIN 4 MCG/ML INJ VIAL/AMP IV ONE (20:58)
[2025-06-06 22:08] LABS: CALCIUM LEVEL 8.6 MG/DL (8.5-10.1); CARBON DIOXIDE LEVEL 30 MMOL/L (20-31); CHLORIDE LEVEL 78 MMOL/L (98-107); CREATININE FOR GFR 0.69 MG/DL (0.70-1.30); GLOMERULAR FILTRATION RATE > 90.0 (>56); POTASSIUM SERUM 3.6 MMOL/L (3.5-5.1); SODIUM LEVEL 120 MMOL/L (136-145)
[2025-06-07] VITALS (20 sets, daily range): BP systolic 94–144; BP diastolic 56–69; TEMP 97.3–98.5; O2SAT 96–100
[2025-06-07 05:33] LABS: CALCIUM LEVEL 8.0 MG/DL (8.5-10.1); CARBON DIOXIDE LEVEL 32 MMOL/L (20-31); CHLORIDE LEVEL 77 MMOL/L (98-107); CREATININE FOR GFR 0.60 MG/DL (0.70-1.30); GLOMERULAR FILTRATION RATE > 90.0 (>56); POTASSIUM SERUM 3.3 MMOL/L (3.5-5.1); SODIUM LEVEL 118 MMOL/L (136-145)
[2025-06-07] MEDS: POTASSIUM CHLORIDE 10MEQ SR TABLET PO ONE ×2 (08:13→14:25)
[2025-06-07] MEDS: METOPROLOL TART 25 MG TABLET PO SCH (08:15)
[2025-06-07 08:38] LABS: BASO # 0.0 10^3/uL (0.0-0.2); BASO % 0.5 % (0.0-1.0); EOS # 0.1 10^3/uL (0.0-0.5); EOS % 1.2 % (0.0-3.0); LYMPH # 1.2 10^3/uL (1.5-5.0); LYMPH % 20.3 % (24.0-44.0); MONO # 0.5 10^3/uL (0.0-0.8); MONO % 9.0 % (2.0-8.0); NEUTROPHILS # 4.1 10^3/uL (1.5-8.5); NEUTROPHILS % 68.2 % (36.0-66.0); PLATELET COUNT, AUTOMATED 133 10^3/uL (150-450)
[2025-06-07 09:16] LABS: CALCIUM LEVEL 8.1 MG/DL (8.5-10.1); CARBON DIOXIDE LEVEL 30 MMOL/L (20-31); CHLORIDE LEVEL 78 MMOL/L (98-107); CREATININE FOR GFR 0.56 MG/DL (0.70-1.30); GLOMERULAR FILTRATION RATE > 90.0 (>56); POTASSIUM SERUM 3.3 MMOL/L (3.5-5.1); SODIUM LEVEL 118 MMOL/L (136-145)
[2025-06-07] MEDS: FAMOTIDINE 20 MG/2 ML VIAL IVP ONE (10:12)
[2025-06-07] MEDS: MAG SULF 1GM/100ML (MAG RUN) 1 GM in IV 1 EA IV SCH (10:17)
[2025-06-07 13:51] LABS: CALCIUM LEVEL 8.1 MG/DL (8.5-10.1); CARBON DIOXIDE LEVEL 33 MMOL/L (20-31); CHLORIDE LEVEL 79 MMOL/L (98-107); CREATININE FOR GFR 0.56 MG/DL (0.70-1.30); GLOMERULAR FILTRATION RATE > 90.0 (>56); POTASSIUM SERUM 3.4 MMOL/L (3.5-5.1); SODIUM LEVEL 120 MMOL/L (136-145)
[2025-06-07] MEDS: METOPROLOL TART 25 MG TABLET PO ONE (14:26)
[2025-06-07] MEDS: DESMOPRESSIN 4 MCG/ML INJ VIAL/AMP SQ ONE (15:23)
[2025-06-07] MEDS: METOPROLOL TART 50 MG TAB PO SCH (20:47)
[2025-06-07 21:04] LABS: CALCIUM LEVEL 7.9 MG/DL (8.5-10.1); CARBON DIOXIDE LEVEL 30 MMOL/L (20-31); CHLORIDE LEVEL 78 MMOL/L (98-107); CREATININE FOR GFR 0.55 MG/DL (0.70-1.30); GLOMERULAR FILTRATION RATE > 90.0 (>56); POTASSIUM SERUM 3.7 MMOL/L (3.5-5.1); SODIUM LEVEL 118 MMOL/L (136-145)
[2025-06-08 00:11] VITALS: BP 121/65; TEMP 97.6; O2SAT 100
[2025-06-08 02:45] LABS: CALCIUM LEVEL 7.6 MG/DL (8.5-10.1); CARBON DIOXIDE LEVEL 30 MMOL/L (20-31); CHLORIDE LEVEL 77 MMOL/L (98-107); CREATININE FOR GFR 0.52 MG/DL (0.70-1.30); GLOMERULAR FILTRATION RATE > 90.0 (>56); POTASSIUM SERUM 3.4 MMOL/L (3.5-5.1); SODIUM LEVEL 116 MMOL/L (136-145)
[2025-06-08] MEDS: NS (Normal Saline) 0.9% 1,000 ML IV SCH (02:56)
[2025-06-08 03:03] VITALS: BP 113/51; TEMP 97.6; O2SAT 99
[2025-06-08 05:52] LABS: BASO # 0.1 10^3/uL (0.0-0.2); BASO % 0.5 % (0.0-1.0); EOS # 0.2 10^3/uL (0.0-0.5); EOS % 2.1 % (0.0-3.0); LYMPH # 3.0 10^3/uL (1.5-5.0); LYMPH % 31.2 % (24.0-44.0); MONO # 0.9 10^3/uL (0.0-0.8); MONO % 9.3 % (2.0-8.0); NEUTROPHILS # 5.3 10^3/uL (1.5-8.5); NEUTROPHILS % 55.0 % (36.0-66.0); PLATELET COUNT, AUTOMATED 135 10^3/uL (150-450)
[2025-06-08 06:15] LABS: ALT/SGPT 44 U/L (7.0-40); AST/SGOT 37 U/L (<34); CALCIUM LEVEL 7.8 MG/DL (8.5-10.1); CARBON DIOXIDE LEVEL 30 MMOL/L (20-31); CHLORIDE LEVEL 81 MMOL/L (98-107); CREATININE FOR GFR 0.52 MG/DL (0.70-1.30); GLOMERULAR FILTRATION RATE > 90.0 (>56); MAGNESIUM LEVEL 1.7 MG/DL (1.8-2.4); POTASSIUM SERUM 3.5 MMOL/L (3.5-5.1); SODIUM LEVEL 119 MMOL/L (136-145)
[2025-06-08 07:27] VITALS: BP 119/60; TEMP 97.8; O2SAT 100
[2025-06-08] MEDS: MAG SULF 1GM/100ML (MAG RUN) 1 GM in IV 1 EA IV ONE (08:12)
[2025-06-08] MEDS: SUCRALFATE SUSP 1GM/10ML UD PO SCH (08:13)
[2025-06-08] MEDS: APIXABAN 5 MG TAB PO SCH (08:13)
[2025-06-08] MEDS: MAGNESIUM OXIDE 400 MG TAB PO SCH (08:13)
[2025-06-08] MEDS: METOPROLOL TART 25 MG TABLET PO SCH (08:14)
[2025-06-08 10:25] LABS: CALCIUM LEVEL 8.1 MG/DL (8.5-10.1); CARBON DIOXIDE LEVEL 30 MMOL/L (20-31); CHLORIDE LEVEL 81 MMOL/L (98-107); CREATININE FOR GFR 0.53 MG/DL (0.70-1.30); GLOMERULAR FILTRATION RATE > 90.0 (>56); POTASSIUM SERUM 3.6 MMOL/L (3.5-5.1); SODIUM LEVEL 120 MMOL/L (136-145)
[2025-06-08 12:21] VITALS: BP 116/61; TEMP 97.9; O2SAT 100
[2025-06-08 15:04] LABS: CALCIUM LEVEL 8.1 MG/DL (8.5-10.1); CARBON DIOXIDE LEVEL 31 MMOL/L (20-31); CHLORIDE LEVEL 85 MMOL/L (98-107); CREATININE FOR GFR 0.53 MG/DL (0.70-1.30); GLOMERULAR FILTRATION RATE > 90.0 (>56); POTASSIUM SERUM 4.3 MMOL/L (3.5-5.1); SODIUM LEVEL 124 MMOL/L (136-145)
[2025-06-08 19:13] LABS: CALCIUM LEVEL 8.2 MG/DL (8.5-10.1); CARBON DIOXIDE LEVEL 30 MMOL/L (20-31); CHLORIDE LEVEL 86 MMOL/L (98-107); CREATININE FOR GFR 0.54 MG/DL (0.70-1.30); GLOMERULAR FILTRATION RATE > 90.0 (>56); POTASSIUM SERUM 3.8 MMOL/L (3.5-5.1); SODIUM LEVEL 125 MMOL/L (136-145)
[2025-06-08 19:45] VITALS: BP 125/66; TEMP 98.4; O2SAT 98
[2025-06-08 22:41] LABS: CALCIUM LEVEL 8.6 MG/DL (8.5-10.1); CARBON DIOXIDE LEVEL 29 MMOL/L (20-31); CHLORIDE LEVEL 88 MMOL/L (98-107); CREATININE FOR GFR 0.52 MG/DL (0.70-1.30); GLOMERULAR FILTRATION RATE > 90.0 (>56); POTASSIUM SERUM 3.7 MMOL/L (3.5-5.1); SODIUM LEVEL 127 MMOL/L (136-145)
[2025-06-08 23:15] VITALS: BP 103/65; TEMP 98.2; O2SAT 98
[2025-06-08] MEDS: D5W 1,000 ML IV SCH (23:17)
[2025-06-09 01:47] LABS: MAGNESIUM LEVEL 1.7 MG/DL (1.8-2.4); PHOSPHORUS LEVEL 1.5 MG/DL (2.5-4.9)
[2025-06-09 02:20] LABS: MAGNESIUM LEVEL 1.9 MG/DL (1.8-2.4); PHOSPHORUS LEVEL 1.7 MG/DL (2.5-4.9)
[2025-06-09] MEDS: MAG SULF 1GM/100ML (MAG RUN) 1 GM in IV 1 EA IV SCH (03:13)
[2025-06-09 04:08] VITALS: BP 126/68; TEMP 96.9; O2SAT 99
[2025-06-09 08:00] VITALS: BP 125/66; TEMP 97.7; O2SAT 97
[2025-06-09 08:02] LABS: BASO # 0.0 10^3/uL (0.0-0.2); BASO % 0.5 % (0.0-1.0); EOS # 0.1 10^3/uL (0.0-0.5); EOS % 1.6 % (0.0-3.0); LYMPH # 1.8 10^3/uL (1.5-5.0); LYMPH % 20.7 % (24.0-44.0); MONO # 1.1 10^3/uL (0.0-0.8); MONO % 12.9 % (2.0-8.0); NEUTROPHILS # 5.2 10^3/uL (1.5-8.5); NEUTROPHILS % 59.9 % (36.0-66.0); PLATELET COUNT, AUTOMATED 165 10^3/uL (150-450)
[2025-06-09 08:51] LABS: CALCIUM LEVEL 7.8 MG/DL (8.5-10.1); CARBON DIOXIDE LEVEL 29 MMOL/L (20-31); CHLORIDE LEVEL 90 MMOL/L (98-107); CREATININE FOR GFR 0.52 MG/DL (0.70-1.30); GLOMERULAR FILTRATION RATE > 90.0 (>56); POTASSIUM SERUM 3.8 MMOL/L (3.5-5.1); SODIUM LEVEL 128 MMOL/L (136-145)
[2025-06-09 10:42] LABS: IRON (FE) 33 UG/DL (65-175)
[2025-06-09 10:43] LABS: PERCENT SATURATION 10.7 % (19.7-50.0)
[2025-06-09 12:00] VITALS: BP 105/67; TEMP 98; O2SAT 99
[2025-06-09] MEDS: POTASSIUM CHLORIDE 10MEQ SR TABLET PO ONE (12:09)
[2025-06-09 12:53] LABS: CALCIUM LEVEL 8.4 MG/DL (8.5-10.1); CARBON DIOXIDE LEVEL 30 MMOL/L (20-31); CHLORIDE LEVEL 90 MMOL/L (98-107); CREATININE FOR GFR 0.56 MG/DL (0.70-1.30); GLOMERULAR FILTRATION RATE > 90.0 (>56); POTASSIUM SERUM 4.0 MMOL/L (3.5-5.1); SODIUM LEVEL 128 MMOL/L (136-145)
[2025-06-09] MEDS: NEUTRA-PHOS 1.5 GM PACKET PO SCH (13:21)
[2025-06-09] MEDS: METOPROLOL TART 25 MG TABLET PO SCH (13:22)
[2025-06-09 14:41] LABS: FREE T4 0.63 NG/DL (0.89-1.76)
[2025-06-09 18:50] LABS: CALCIUM LEVEL 8.8 MG/DL (8.5-10.1); CARBON DIOXIDE LEVEL 28 MMOL/L (20-31); CHLORIDE LEVEL 90 MMOL/L (98-107); CREATININE FOR GFR 0.56 MG/DL (0.70-1.30); GLOMERULAR FILTRATION RATE > 90.0 (>56); POTASSIUM SERUM 4.5 MMOL/L (3.5-5.1); SODIUM LEVEL 127 MMOL/L (136-145)
[2025-06-09 20:16] VITALS: BP 148/67; TEMP 98.2; O2SAT 100
[2025-06-09] MEDS: PANTOPRAZOLE 40MG TAB PO SCH (20:18)
[2025-06-10 00:42] LABS: CALCIUM LEVEL 8.2 MG/DL (8.5-10.1); CARBON DIOXIDE LEVEL 28 MMOL/L (20-31); CHLORIDE LEVEL 92 MMOL/L (98-107); CREATININE FOR GFR 0.60 MG/DL (0.70-1.30); GLOMERULAR FILTRATION RATE > 90.0 (>56); POTASSIUM SERUM 3.8 MMOL/L (3.5-5.1); SODIUM LEVEL 130 MMOL/L (136-145)
[2025-06-10 04:00] VITALS: BP 133/74; TEMP 97.3; O2SAT 99
[2025-06-10 05:00] VITALS: BP 133/74
[2025-06-10 05:35] LABS: PLATELET COUNT, AUTOMATED 172 10^3/uL (150-450)
[2025-06-10 05:53] LABS: CALCIUM LEVEL 8.4 MG/DL (8.5-10.1); CARBON DIOXIDE LEVEL 29 MMOL/L (20-31); CHLORIDE LEVEL 92 MMOL/L (98-107); CREATININE FOR GFR 0.63 MG/DL (0.70-1.30); GLOMERULAR FILTRATION RATE > 90.0 (>56); POTASSIUM SERUM 4.2 MMOL/L (3.5-5.1); SODIUM LEVEL 131 MMOL/L (136-145)
[2025-06-10 06:20] LABS: BASOPHILS 1 % (0-1); EOSINOPHILS 4 % (0-3); LYMPHOCYTES 36 % (16-44); MONOCYTES 9 % (0-5); NEUTROPHILS 50 % (28-66); PLATELET ESTIMATE NORMAL (NORMAL)
[2025-06-10 08:00] VITALS: BP 127/65; TEMP 97.7; O2SAT 100
[2025-06-10 08:10] LABS: MAGNESIUM LEVEL 1.8 MG/DL (1.8-2.4)
[2025-06-10 08:26] LABS: MAGNESIUM LEVEL 2.0 MG/DL (1.8-2.4)
[2025-06-10] MEDS ORDERED: TOPR50TA PO (11:41)
[2025-06-10] MEDS ORDERED: MAGN400T33 PO (11:41)
[2025-06-10] MEDS ORDERED: FAMO40TA3 PO (11:41)
== END 2025-06-10 12:13 | disposition home or self-care (01) | DRG 425 ==
LOC: EDBD 07:16 → M ED 07:16 → M ED INP 11:11 → M ICU 11:58
PROVIDERS: ADMIT Internal Medicine; ATTEND Internal Medicine
DX: E87.1 Hypo-osmolality and hyponatremia (principal); K70.30 Alcoholic cirrhosis of liver without ascites; I48.91 Unspecified atrial fibrillation; D50.9 Iron deficiency anemia, unspecified; I10 Essential (primary) hypertension; E11.9 Type 2 diabetes mellitus without complications; Z79.01 Long term (current) use of anticoagulants; R42 Dizziness and giddiness; E78.5 Hyperlipidemia, unspecified; E03.9 Hypothyroidism, unspecified; Z79.899 Other long term (current) drug therapy; E87.6 Hypokalemia; E66.9 Obesity, unspecified

== ENCOUNTER → 2025-07-20 | Outpatient (REF) | payer BC ==
[~2025-07-20] MED LIST changes: +ELIQ5TAB PO; +FAMO40TA3 PO; +LISI20TA33 PO; +MAGN400T33 PO; +METH-1387 PO; +MULT-40 PO; +TOPR50TA PO
== END ==
LOC: M LAB REF 11:57
PROVIDERS: ATTEND Physician Assistant Medical
DX: E05.90 Thyrotoxicosis, unspecified without thyrotoxic crisis or storm (principal)

== ENCOUNTER → 2025-09-28 | Outpatient (REF) | payer OTHER | LOC: M LAB REF 14:05 | PROVIDERS: ATTEND Physician Assistant Medical | DX: E05.90 Thyrotoxicosis, unspecified without thyrotoxic crisis or storm (principal) ==